=== PATIENT | female | born 1940 | race Caucasian/White ===

== ENCOUNTER 2016-12-18 10:36 | Inpatient (IN) | payer MEDICARE, BC ==
[2016-12-18] MEDS ORDERED: ALBUTEROL SULFATE/IPRATROPIUM 3 ML NEBU IH ONE ×2 (10:45→10:56)
[2016-12-18] MEDS ORDERED: METHYLPREDNISOLONE SOD SUCC/PF 125 MG/2 ML VIAL IV ONE (10:45)
[2016-12-18] MEDS ORDERED: METHYLPREDNISOLONE SOD SUCC/PF 125 MG/2 ML VIAL ONE (10:56)
--- OUTSIDE RECORDS SUMMARY | 2016-12-18 11:01 | XMS REPORT | Continuity of Care Document ---
:1940 Author Organization [facility] ([facility]) Address [address] [place] [address] Phone [phone] Care Team Providers Name Role Phone RobertAleta santosgy Primary Care Provider [phone] Source Comments This disclosure is being made pursuant to the Care Everywhere program, applicable federal and state laws, and may not contain all informaitonavailable regarding this patient.[facility] ([facility]) Active Allergies and Adverse Reactions Allergen Noted Date Severity Reactions Comments Codeine 11/13/2009 Respiratory Distress Ropinirole 05/24/2014 Nausea & Vomiting Current Medications Prescription Sig. Disp. Refills Start Date End Date Status BETA-CAROTENE,A, Take by Active W-C & E/ZN/CU mouth. (OCUVITE PRESERVISION PO) lisinopril-hydrochl Take 1 Tab by Active orothiazide 10-12.5 mouth daily. mg per tablet calcium Take 1 Tab by Active carbonate-vitamin mouth daily. D3 w/ minerals (CALCIUM-VITAMIN D) 600 mg calcium- 400 unit per tablet artificial tears instill 1 Drop Active (REFRESH PLUS) 0.5 onto both eyes % ophthalmic 3 times daily. dropperette CLONAZEPAM 0.5 mg 11/21/2014 Active tablet omeprazole 40 mg Take 40 mg by Active enteric coated mouth 2 times capsule daily. letrozole 2.5 mg Take 1 tablet 30 tablet 11 04/17/2016 Active tablet (2.5 mg total) by mouth daily. HYDROcodone-acetami TAKE ONE 0 03/20/2016 Active nophen 7.5-325 mg TABLET BY per tablet MOUTH EVERY 4 TO 6 HOURS NEEDED levothyroxine 100 Take 1 tablet 8 08/08/2016 Active mcg tablet (100 mcg) by mouth daily sucralfate 1000 mg TAKE 1 TAB 4 2 08/08/2016 Active tablet TIMES A DAY BEFORE MEALS AND BEDTIME benzonatate 200 mg TAKE 2 CAPS 3 2 08/22/2016 Active capsule TIMES A DAY NEEDED gabapentin 100 mg Take 100 mg by 3 10/08/2016 Active capsule mouth at bedtime. gabapentin 300 mg TAKE ONE 2 09/09/2016 Active capsule TABLET BY MOUTH NIGHTLY albuterol-ipratropi NEBULIZE 1 3 08/22/2016 Active um 2.5-0.5 mg/3 mL VIAL EVERY 4 inhalation solution HOURS NEEDED levoFLOXacin 500 mg Take 1 tablet 0 08/22/2016 Active tablet (500 mg) by mouth daily for 14 days amoxicillin-clavula Take 1 tablet 0 07/08/2016 12/17/2016 Discontinued miky 875-125 mg per by mouth 2 tablet times daily. predniSONE 10 mg TAKE 2 TABS IN 0 08/25/2016 12/17/2016 Discontinued tablet THE AM. 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 Right Eye Left Eye Time To Recurrence: Time To Recurrence: Date VA (D cc) CMT Status Procedure VA (D cc) CMT Status Procedure Cmts 11/13/2009 20/100 20/50 Avastin #[id number] 12/25/2009 20/35 20/35 -1 332 Avastin #[id number] 02/05/2010 20/35 20/35 307 Avastin #[id number] 03/26/2010 20/50 20/30 294 Avastin #[id number] 05/21/2010 20/28 20/22 285 Avastin #[id number] 07/23/2010 20/30 20/20 -1 316 Avastin #[id number] 09/17/2010 20/30 20/25 285 Avastin #[id number] 10/31/2010 20/30-1 20/20-1 259 Avastin #[id number] 12/10/2010 20/40-1 20/20-1 328 Avastin #[id number] 01/23/2011 20/30 +2 20/20 -2 281 Avastin#[id number] 02/27/2011 20/40 20/20 281 Avastin # [id number] 04/16/2011 20/30 20/20 -2 278 Avastin #[id number] 05/29/2011 20/30 20/20-1 Avastin #[id number] 07/22/2011 20/40 20/20 Avastin [id number] 09/30/2011 20/60 20/20-2 Avastin [id number] 11/25/2011 20/50-2 ph 20/30-1 20/20-2 Avastin [id number] 01/20/2012 20/60 ph 20/40 20/20 Avastin [id number] 03/23/2012 320 avastin [id number] 05/25/2012 20/60 ph20/25 20/40 Avastin [id number] 07/28/2012 20/25 -2 20/20 -1 Avastin [id number] 10/06/2012 20/25+2 20/30+2 Avastin [id number] 12/22/201228-1 20/28 Avastin [id number] 03/09/2013/30+2 2020-2 Lucentis [id number] 05/31/2013 [id number] 06/29/2013 sc -1 sc Lucentis [id number] 07/27/13 Pa 28+2 Lucentis [id number] 08/26/2013-2 ma 20/ cc Lucentis [id number] 09/28/2013+1 ma -2 sc Lucentis [id number] 11/02/2013 sc 20/22 sc Lucentis [id number] 01/17/2014 -2 ma 2030 -2 sc Lucentis [id number] 03/22/2014 20/20 sc 20/20 sc Lucentis [id number] 05/24/2014 20/20-1 sc 20/20-1 sc Lucentis lot [id number] 08/02/2014 20/20 sc 20/20 sc Lucentis lot [id number] 09/19/2014 20/30 sc 20/30 sc Lucentis [id number] 11/01/2014 20/20 sc 20/20 sc Lucentis lot [id number] 12/06/2014 20/20 sc 20/20 sc Lucentis [id number] 01/24/2015 20/20 sc 20/20 sc Lucentis [id number] 03/14/2015 20/25 sc 20/25 sc Lucentis [id number] . 05/22/2015 20/40 sc 20/25 sc Lucentis [id number] 07/25/2015 20/20 -1 sc 20/20 -2 sc Lucentis [id number] 09/05/2015 20/20 sc 20/20 sc Lucentis [id number] 10/31/2015 20/20-2 sc 20/20-1 sc Lucentis [id number] 12/26/2015 20/20 sc 20/15-1 sc Lucentis [id number] 02/20/2016 20/20 -1 cc 20/15 -2 cc Lucentis [id number] 04/09/2016 20/20-1 sc 20/25 sc Lucentis [id number] 05/28/2016 20/15-1 sc 20/20-2 sc Lucentis [id number] 07/16/2016 20/20-1 +1 sc 20/20-2 +3 sc Lucentis [id number] 09/10/2016 20/20 -2 sc 20/20-1 +3 sc Lucentis [id number] 10/27/2016 20/20 sc 20/20 -1 sc Lucentis [id number] 12/17/2016 20/20 sc 20/20 sc Lucentis [id number] Most Recent Encounters Date Type Specialty Providers Description 12/17/2016 Office Visit Ophthalmology - Chief Comp: Patient Specialty Reported Reason For Visit 12/17/2016 Office Visit Ophthalmology - Default, Other Dx: Exudative age- related Specialty Billg - Defo macular degeneration of Sanjay Soliz, left eye with active MD choroidal neovascularization (Primary Dx) 10/27/2016 Office Visit Ophthalmology - Chief Comp: Patient Specialty Reported Reason For Visit 10/27/2016 Office Visit Ophthalmology - Juanita Correa, Dx: Exudative age- related Specialty macular degeneration of left eye with active choroidal neovascularization (Primary Dx) 10/06/2016 Office Visit Ophthalmology - Juanita Correa, Chief Comp: Patient Specialty MD Reported Reason For Visit Social History Tobacco Use Types Packs/Day Years Used Date Former Smoker Cigarettes 1 40 Quit: 05/02/2010 Smokeless Tobacco: Never Used Tobacco Cessation:Counseling Given: Yes Comments: Alcohol Use Drinks/Week oz/Week Comments No 0 Standard drinks or equivalent 0.0 Last Filed Vital Signs Vital Sign Reading Time Taken Blood Pressure 120/80 08/11/2016 9:00 AM CDT Pulse 84 08/11/2016 9:00 AM CDT Temperature 35.9 C (96.6 F) 08/11/2016 9:00 AM CDT Respiratory Rate 20 08/11/2016 9:00 AM CDT Height 1.549 m (5' 1") 03/06/2014 10:59 AM CDT Weight 50.803 kg (112 lb) 08/11/2016 9:00 AM CDT Body Mass Index 21.17 08/11/2016 9:00 AM CDT Oxygen Saturation 99% 01/21/2016 9:26 AM CDT Plan of Care Date Type Specialty Providers Description 02/04/2017 Appointment Ophthalmology - Default, Other Chief Comp: Patient Specialty Billg - Defo Reported Reason For [address] [place] [address] [phone] (Fax) Health Maintenance Due Date Last Done Comments Hepatitis B Vaccine (1 of 3 - Primary Series) 1940 Tdap Vaccine 1950 Lipid Disorder Screening 1957 Td Vaccine 1957 Mammogram 1979 Colonoscopy 11/04/1989 Zoster Vaccine 1999 Osteoporosis Screening (DXA Bone Density) 2004 Pneumococcal Vaccine (1 of 2 - PCV13) 2004 Influenza Vaccine: Seasonal (#1) 05/19/2016 Results from Last 3 Months EYE PROC - INTRAVITREAL INJECTION (12/17/2016 10:04 AM)Only the most recent of2 resultswithin the time period is included. Narrative Sanjay Soliz MD 12/17/2016 10:04 AM [facility]reous Injection Clinic Current Date: 12/17/2016 Subjective: Codie Colby is a 76 y.o. female with a history of Exudative age-related macular degeneration of left eye with active choroidal neovascularization. History of Present Illness: Patient returns for continued treatment of AMD OS with Lucentis. Patient states vision is about the same since the last injection. 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 Breast cancer 02/02/2013 Exudative age-related macular degeneration of left eye with active choroidal neovascularization 11/13/2009 Injection History: AMD OD dAMD, never inj OS: -07/25/15 had new SRF (improved VA) on 9w Lucentis Injection and Visual Acuity Log Date Injection OD VA sc VA cc Injection OS VA sc VA cc 12/17/201620/20 20/20 10/27/201620/20 20/20 -1 09/10/201620/20 -2 20/20-1 +3 07/16/201620/20-1 +1 20/20-2 +3 05/28/201620/15-1 20/20-2 04/09/201620/20-1 20/25 02/20/2016 20/20 -1 20/15 -2 12/26/201520/20 20/15-1 10/31/201520/20-2 20/20-1 09/05/201520/20 20/20 07/25/201520/20 -1 20/20 -2 05/22/201520/0/25-2 20/03/14/201520/25NI 20/25 01/24/201520/20 20/20 12/06/201420/20 20/20 11/01/464254/20 20/20 09/19/201420/0/30+2 20/08/02/201420/20 20/20 05/24/201420/20-1 20/20-1 03/22/201420/20 20/20 30 -2nh 30 -2 20/09/28/2013 Lucentis +1 -2 -/08/24/2013 20/22-1 +2 06/29/2013 20/22-1 -2 20/20 -1 +220/25-1 20/20-2 28-1 2010/06/2012+220/20-2 20/30+2 07/28/20122025 -2 20/20 -1 05/25/201220/6020/25 20/40 03/23/201220/4020/30+2 20/40 -2 01/20/2012 20/60 20/20 11/25/2011 20/50 -2 20/20 -2 09/30/2011 20/60 20/20-2 07/22/2011 20/40 20/20 05/29/2011 20/30 20/20 -1 04/16/2011 20/30 20/20 -2 02/27/2011 20/40 20/20 01/23/2011 20/30 +2 20/20 -2 12/10/2010 20/40 -1 20/20 -1 10/31/2010 20/30 -1 20/20 -1 09/17/2010 20/30 20/25 07/23/2010 20/30 20/20 -1 05/21/2010 20/28 20/22 03/26/2010 20/50 20/30 02/05/2010 20/35 20/35 12/25/2009 20/35 20/35 -1 Review of Systems: Negative except per HPI Objective: Base Eye Exam Visual Acuity (Snellen - Linear) Right Left Dist sc 20/20 20/20 Tonometry (Tonopen, 8:14 AM) Right Left Pressure 14 15 Neuro/Psych Oriented x3:Yes Mood/Affect:Normal Dilation Left eye:0.5% Mydriacyl, 2.5% Phenylephrine @ 8:14 AM Slit Lamp and Fundus Exam Fundus Exam Right Left Macula not dilated PED with mild thickening, no hemorrhage Oct Macula Left Eye 12/17/2016 OS:CMT 353 microns , was 314. Juxtafoveal FVPED with increased SRFadjacent to lesion. Assessment / Plan: 1. Age-related macular degeneration OD: dry, high risk-stable. OS: Exudative: involuted chronic on Lucentis since 2009. Last activity was 07/2014. Minimal SRF, improved from last visit. -s/p Avastin last 12/22/12. -s/p Lucentis OS 10/27/16 (7w) 2. Choroidal nevus OD: typical, stable, low risk for malignant transformation. 3. Dry eye OU 4. Hx of breast cancer: No choroidal metastases. PLAN: 1. Lucentis OS today. 2. Continue AREDS/amlser grid monitoring. 3. S/Sx of Choroidal neovascularization discussed. 4. Follow up in 7 weeks in injection clinic. Keep at 7 weeks until dry then SLOWLY increase interval. Back to [facility] or prn. Staff Involved Resident/Fellow without Staff (non-primary care) PROCEDURE: Intravitreal injection Medication Injected: Intravitreal injection of 0.5mg Lucentis left eye. Pre-procedure Diagnosis:Exudative age-related macular degeneration of left eye with active choroidal neovascularization Preparation:5% Sterile PVP Antibiotic Drops:Gentamicin 0.3% administered both pre and post-procedure to injected eye/s Anesthesia: Topical Proparacaine 0.5% and Subconjunctival 2% Lidocaine Complications:None Post-injection Exam:VA > or=Hand Motions Procedure Comments: Patient was given endophthalmitis return precautions including pain and decreased vision and was instructed to return to clinic if any concerns. I was present for the entire procedure. Sanjay Soliz MD Vitreoretinal Surgery Fellow Department of Ophthalmology [facility] OCT MACULA LEFT EYE (12/17/2016 8:20 AM) Narrative OS:CMT 353 microns , was 314. Juxtafoveal FVPED with increased SRF adjacent to lesion. OCT MACULA (10/27/2016 8:07 AM) Narrative OD:CMT 266 microns , was 272. Drusen no fluid. OS:CMT 314 microns , was 353. Juxtafoveal FVPED with trace SRF adjacent to lesion.
--- NOTE | 2016-12-18 11:03 | ERNOTE ---
Date of Service: 12/18/16 Time Seen by Provider: 12/18/16 10:44 Stated Complaint: PNEUMONIA/BACK PAIN Presenting Symptoms:: cough Source: patient, RN/MD Exam Limitations: no limitations Immunizations: IMMUNIZATION HX Immunizations Up to Date Yes History of Influenza Vaccine No Hx Pneumococcal Vaccination No Allergies/Adverse Reactions: Allergies codeine [Codeine] Allergy (Severe, Verified 07/08/16 11:53) respiratory distress ropinirole Allergy (Mild, Verified 12/18/16 10:45) Nausea Home Medications: HOME MEDICATIONS Levothyroxine Sodium [Synthroid] 100 mcg PO DAILY 04/26/13 [Last Taken 04/17/14] Lisinopril/Hydrochlorothiazide [Lisinopril-Hctz 20-12.5 mg Tab] 1 each PO DAILY 04/26/13 [Last Taken 04/17/14] Albuterol Sulfate/Ipratropium [Duoneb 2.5-0.5MG/3ML Soln] 3 ml IH QID 12/18/16 [ Last Taken Unknown] Benzonatate 400 mg PO TID 12/18/16 [Last Taken Unknown] Calcium Carb/Vit D3/Minerals [Calcium 600+D Plus Minerals Tb] 1 each PO DAILY [Last Taken Unknown] Gabapentin 300 mg PO HS 12/18/16 [Last Taken Unknown] Letrozole [Femara] 2.5 mg PO DAILY 12/18/16 [Last Taken Unknown] Levofloxacin [Levaquin] 500 mg PO 12/18/16 [Last Taken Unknown] Omeprazole 40 mg PO BID 12/18/16 [Last Taken Unknown] Sucralfate [Carafate] 1 gm PO QID 12/18/16 [Last Taken Unknown] clonazePAM [Klonopin] 0.5 mg PO DAILY 12/18/16 [Last Taken Unknown] - History of Present Ilness Narrative: Pt. comes in with c/o cough and SOB for four months that she was placed on abx and steroids for last week that is not improving. Pt. also takes duonebs daily without relief in symptoms. Pt. is a former smoker but does not have a hx of any diagnosed lung or heart disease. Pt. denies any chest pain but does c/o L post back pain that started a week ago and has not improved despite treatment for pneumonia. Pt. denies any fever, rhinorrhea, sinus pain or congestion, abd pain, or NVD. Pt. denies any aggravating factors. Review of Systems - Review of Systems Constitutional: Present: no symptoms reported, weakness, fatigue, malaise. Absent: recent illness, fever, chills EYE: Present: no symptoms reported ENT: Present: no symptoms reported Respiratory: Present: shortness of breath, cough, wheezing Cardiology: Present: no symptoms reported. Absent: chest pain, palpitations, edema Gastrointestinal/Abdominal: Present: no symptoms reported. Absent: nausea, vomiting, diarrhea, abdominal pain Genitourinary: Present: no symptoms reported Musculoskeletal: Present: back pain - L lateral upper back. Absent: joint pain Neurological: Present: no symptoms reported. Absent: headache, dizziness/light- headedness, numbness, tingling All Other Systems: All systems neg except as marked - Patient's Past Medical History Patient History - Cardiac/Respiratory: Hypertension Patient History - Cancer: Breast, Kidney Patient History - Surgical Procedures: Appendectomy, Cholecystectomy, Total Knee Replacement, T & A, Other Patient History - Other: None LMP (females 10-50): Menopausal - Social History Living Situations: home Psych History: No pertinent hx Smoking Status: Former smoker - Immunizations Immunizations Up to Date: Yes Hx Pneumococcal Vaccination: No History of Influenza Vaccine: No Physical Exam - Physical Exam General Appearance: Present: wd/wn, alert, no apparent distress Eye Exam: Normal inspection: bilateral, PERRL: bilateral, EOMI: bilateral Ears, Nose, Throat: Present: normal ENT inspection, normal pharynx Neck: Present: normal inspection, nontender. Absent: lymphadenopathy (R), lymphadenopathy (L) Respiratory: Present: chest nontender, respiratory distress, accessory muscle use - abdominal, decreased breath sounds - L lung. Absent: chest tenderness, rales, rhonchi, wheezing Cardiovascular/Chest: Present: no murmur, normal peripheral pulses, tachycardia Gastrointestinal/Abdominal: Present: normal bowel sounds, nontender, nondistended, soft, no organomegaly Back Exam: Present: normal inspection, normal range of motion, no CVA tenderness , no vertebral tenderness Extremity Exam: Present: normal inspection, non-tender, normal range of motion, no edema. Absent: calf tenderness Neurological Exam: Present: alert, oriented, normal mood/affect, no motor/ sensory deficits, operations officer trust department II-XII nml as tested, normal cerebellar test Skin Exam: Present: warm/dry, pallor. Absent: skin rash ED Progress - Date and Time Seen: Date and Time: 12/18/16 13:[address] Lori Espitia and he accepts pt. for admission - Results and Orders Patient's Lab Results:: I have reviewed the patient's lab results. - Vital Signs Patient's Vital Signs:: I have reviewed the patient's vital signs. Vital Signs: Vital Signs 12/18/16 12/18/16 10:40 10:48 Temperature 36.4 C L Pulse Rate 109 H 109 H Respiratory 19 Rate Blood Pressure 133/74 O2 Sat by Pulse 93 Oximetry - EKG EKG: NSR EKG read: Interp. by me - X-Ray X-Ray #1 X-Ray: chest Interpretation: Reviewed by me X-ray Comments: worsening RML infiltrate and new RLL infiltrate - CT/Ultrasound CT/Ultrasound Narrative: CT chest without PE but with mucus plugging in RMDS and distal R trachea. - Progress/Reassessment Chief Complaint: Upper Respiratory Symptoms Progress:: Unchanged Departure - Departure Clinical Impression: Pneumonia Qualifiers: Pneumonia type: due to unspecified organism Laterality: right Lung location: unspecified part of lung Qualified Code(s): J18.9 - Pneumonia, unspecified organism Disposition: [facility] Condition: Serious Referrals: Tatiana Casey, RESERVATIONS CLERK [Primary Care Provider] -
[2016-12-18 11:20] LABS: Hematocrit 38.6 % (37.0-47.0); Hemoglobin 12.5 gm/dL (12.5-16.0); Mean Cell Volume 84.6 fl (78-100); Mean Corpuscular Hemoglobin 27.4 pg (27-31); Mean Corpuscular Hgb Conc 32.4 g/dl (32-36); Mean Platelet Volume 9.3 fl (6.0-9.5); Neutrophil # 16.7 K/mm3 (1.3-6.0); Neutrophil % 92.3 % (42-75.0); Platelet Count 342 K/mm3 (150-450); Red Blood Count 4.56 M/mm3 (4.2-5.4); Red Cell Distribution Width 14.5 % (11.5-14.0)
[2016-12-18 11:27] LABS: Troponin I Less than 0.017 ng/ml (0.00-0.10)
[2016-12-18 11:29] LABS: ALT 18 U/L (19-67); AST 14 U/L (0-48); Albumin * 2.9 gm/dl (3.4-5.0); Alkaline Phosphatase * 91 U/L (50-170); Anion Gap 16.6 mmol/L (6.8-13.8); BNP * 736 pg/mL (5-550); BUN/Creatinine Ratio 17.1 (9.0-21.6); Bilirubin, Total 0.3 mg/dL (0.0-1.1); Blood Urea Nitrogen 18 mg/dL (3-23); Ca. Corrected For Albumin 8.9 mg/dL (8.4-10.2); Calcium * 8.3 mg/dL (7.9-10.9); Carbon Dioxide 22.1 mmol/L (24-32.6); Chloride 102 mmol/L (97-106); Glucose * 105 mg/dL (70-110); Potassium 4.7 mmol/L (3.4-4.6); Sodium 136 mmol/L (132-142); Total Protein 7.2 gm/dL (6.2-8.2)
[2016-12-18] MEDS ORDERED: AZITHROMYCIN 500 MG in DEXTROSE 5 % IN WATER 250 ML IV ONE ×2 (11:30)
[2016-12-18] MEDS ORDERED: NORMAL SALINE 1,000 ML IV ONE (11:55)
--- OUTSIDE RECORDS SUMMARY | 2016-12-18 14:05 | XMS REPORT | Continuity of Care Document ---
:1940 Author Organization [facility] ([facility]) Address [address] [place] [address] Phone [phone] Care Team Providers Name Role Phone RobertAleta santosgy Primary Care Provider [phone] Source Comments This disclosure is being made pursuant to the Care Everywhere program, applicable federal and state laws, and may not contain all informaitonavailable regarding this patient.[facility] ([facility]) Active Allergies and Adverse Reactions Allergen Noted [...] Status Procedure Cmts 11/13/2009 20/100 20/50 Avastin #[id number] 12/25/2009 20/35 20/35 -1 332 Avastin #[id number] 02/05/2010 20/35 20/35 307 Avastin #[id number] 03/26/2010 20/50 20/30 294 Avastin #[id number] 05/21/2010 20/28 20/22 285 Avastin #[id number] 07/23/2010 20/30 20/20 -1 316 Avastin #[id number] 09/17/2010 20/30 20/25 285 Avastin #[id number] 10/31/2010 20/30-1 20/20-1 259 Avastin #[id number] 12/10/2010 20/40-1 20/20-1 328 Avastin #[id number] 01/23/2011 20/30 +2 20/20 -2 281 Avastin#502164-9 02/27/2011 20/40 20/20 281 Avastin # [id number] 04/16/2011 20/30 20/20 -2 278 Avastin #[id number] 05/29/2011 20/30 20/20-1 Avastin #[id number] 07/22/2011 20/40 20/20 Avastin [id number] 09/30/2011 20/60 20/20-2 Avastin [id number] 11/25/2011 20/50-2 ph 20/30-1 20/20-2 Avastin [id number] 01/20/2012 20/60 ph 20/40 20/20 Avastin [id number] 03/23/2012 320 avastin 543577-3 05/25/2012 20/60 ph20/25 20/40 Avastin [id number] 07/28/2012 20/25 -2 20/20 -1 Avastin [id number] 10/06/2012 20/25+2 20/30+2 Avastin [id number] 12/22/201228-1 20/28 Avastin [id number] 03/09/2013/30+2 2020-2 Lucentis [id number] 05/31/2013 [id number] 06/29/2013 sc -1 sc Lucentis [id number] 07/27/13 Wi 28+2 Lucentis [id number] 08/26/2013-2 al 20/ cc Lucentis 610285 09/28/2013+1 al -2 sc Lucentis 408277 11/02/2013 sc 20/22 sc Lucentis 270697 01/17/2014 -2 al 2030 -2 sc Lucentis 508690 03/22/2014 20/20 sc 20/20 sc Lucentis [id number] 05/24/2014 20/20-1 sc 20/20-1 sc Lucentis lot [id number] 08/02/2014 20/20 sc 20/20 sc Lucentis lot [id number] 09/19/2014 20/30 sc 20/30 sc Lucentis 783922 11/01/2014 20/20 sc 20/20 sc Lucentis lot [id number] 12/06/2014 20/20 sc 20/20 sc Lucentis [id number] 01/24/2015 20/20 sc 20/20 sc Lucentis [id number] 03/14/2015 20/25 sc 20/25 sc Lucentis [id number] . 05/22/2015 20/40 sc 20/25 sc Lucentis [id number] 07/25/2015 20/20 -1 sc 20/20 -2 sc Lucentis [id number] 09/05/2015 20/20 sc 20/20 sc Lucentis [id number] 10/31/2015 20/20-2 sc 20/20-1 sc Lucentis [id number] 12/26/2015 20/20 sc 20/15-1 sc Lucentis [id number] 02/20/2016 20/20 -1 cc 20/15 -2 cc Lucentis [id number] 04/09/2016 20/20-1 sc 20/25 sc Lucentis [id number] 05/28/2016 20/15-1 sc 20/20-2 sc Lucentis [id number] 07/16/2016 20/20-1 +1 sc 20/20-2 +3 sc Lucentis [id number] 09/10/2016 20/20 -2 sc 20/20-1 +3 sc Lucentis [id number] 10/27/2016 20/20 sc 20/20 -1 sc Lucentis [id number] 12/17/2016 20/20 sc 20/20 sc Lucentis [id number] Most Recent Encounters Date Type Specialty Providers [...] Reported Reason For [address] [place] [address] [phone] (Fax) Health Maintenance Due Date Last Done [...] 05/22/201520/0/25-2 20/03/14/201520/25NI 20/25 01/24/201520/20 20/20 12/06/201420/20 20/20 11/01/519471/20 20/20 09/19/201420/0/30+2 20/08/02/201420/20 20/20 05/24/201420/20-1 20/20-1 03/22/201420/20 [...] dry then SLOWLY increase interval. Back to [facility] or prn. Staff Involved Resident/Fellow [...] MD Vitreoretinal Surgery Fellow Department of Ophthalmology [facility] OCT MACULA LEFT EYE (12/17/2016 8:20 AM) Narrative OS:CMT 353 microns , was 314. Juxtafoveal FVPED with increased SRF adjacent to lesion. OCT MACULA (10/27/2016 8:07 AM) Narrative OD:CMT 266 microns , was 272. Drusen no fluid. OS:CMT 314 microns , was 353. Juxtafoveal FVPED with trace SRF adjacent to lesion.
[2016-12-18] MEDS ORDERED: ACETAMINOPHEN 325 MG TABLET PO PRN (14:26)
[2016-12-18] MEDS ORDERED: METHYLPREDNISOLONE SOD SUCC/PF 125 MG/2 ML VIAL IV SCH (14:45)
[2016-12-18] MEDS: ALBUTEROL SULFATE/IPRATROPIUM 3 ML NEBU IH SCH ×3 (15:32→22:24)
--- NOTE | 2016-12-18 16:59 | HP ---
Chief Complaint - Chief Complaint Date of Service: 12/18/16 Time of Service: 17:50 Chief Complaint: Cough History of Present Illness: This is a 76 y/o woman who has had a cough and SOB for four months. The week prior to this admission she was given prescriptions for corticosteroids and antibiotics, but she hasn't improved. She has also used duonebs daily without relief in symptoms. She is a former smoker, but does not have a history of any diagnosed lung or heart disease. She denies any chest pain, but does complain of left sided back pain that started a week ago and has not improved despite treatment for pneumonia. She denies any fever, rhinorrhea, sinus pain or congestion, abd pain, or NVD. She denies any aggravating factors. Today she came to the [facility] ER because of her illness, where CXR showed pneumonia. - Patient's Past Medical History Patient History - Medical: Hypothyroidism Patient History - Cardiac/Respiratory: Hypertension Patient History - Cancer: Breast, Kidney Patient History - Surgical Procedures: Appendectomy, Cholecystectomy, Total Knee Replacement, T & A, Other Patient History - Other: None LMP (females 10-50): Menopausal - Family History Brother Family History - Medical: , Diabetes Type 2 Sister Family History - Medical: Diabetes Type 2 Family History - Cardiac/Respiratory: COPD Mother Family History - Medical: Diabetes Type 1 Father Family History - Cardiac/Respiratory: History Unknown - Social History Living Situations: other Abuse History: No History of abuse Psych History: No pertinent hx Smoking Status: Former smoker Have you smoked in the past 12 months: No Do you dip or chew tobacco: No Patient requests Smoking Cessation Consult: No Initiate information on Smoking Cessation: No Alcohol Use: none Drug Use: none - Immunizations Immunizations Up to Date: Yes Hx Pneumococcal Vaccination: No History of Influenza Vaccine: No Review Of Systems (GEN) - Review of Systems Generalized/Overall Review: Present: Malaise EENTM: Present: No Symptoms Reported Respiratory: Present: Cough Cardiac: Present: No Symptoms Reported Abdominal: Present: No Symptoms Reported Genitourinary: Present: No Symptoms Reported Musculoskeletal: Present: Back Pain Neurological: Present: No Symptoms Reported Skin: Present: No Symptoms Reported Endocrine: Present: No Symptoms Reported Misc: All systems neg except as marked Immunizations: IMMUNIZATION HX Immunizations Up to Date Yes History of Influenza Vaccine No Hx Pneumococcal Vaccination No Allergies/Adverse Reactions: Allergies Allergy/AdvReac Type Severity Reaction Status Date / Time codeine [Codeine] Allergy Severe respiratory Verified 12/18/16 14:55 distress ropinirole Allergy Mild Nausea Verified 12/18/16 14:55 Home Medications: HOME MEDICATIONS Levothyroxine Sodium [Synthroid] 100 mcg PO DAILY 04/26/13 [Last Taken 04/17/14] Lisinopril/Hydrochlorothiazide [Lisinopril-Hctz 20-12.5 mg Tab] 1 each PO DAILY 04/26/13 [Last Taken 04/17/14] Albuterol Sulfate/Ipratropium [Duoneb 2.5-0.5MG/3ML Soln] 3 ml IH Q4H 12/18/16 [ Last Taken Unknown] Benzonatate 400 mg PO TID 12/18/16 [Last Taken Unknown] Beta-Carotene(A) W-C , E/Min [Ocuvite] 2 tab PO DAILY 12/18/16 [Last Taken Unknown] Calcium Carb/Vit D3/Minerals [Calcium 600+D Plus Minerals Tb] 1 each PO DAILY [Last Taken Unknown] Hydrocodone/Acetaminophen [Hydrocodon-Acetaminoph 7.5-325] 1 each PO Q4H PRN 12/05 [Last Taken Unknown] Letrozole [Femara] 2.5 mg PO DAILY 12/18/16 [Last Taken Unknown] Levofloxacin [Levaquin] 500 mg PO DAILY 12/18/16 [Last Taken Unknown] Omeprazole 40 mg PO BID 12/18/16 [Last Taken Unknown] Polyvinyl Alcohol [Artificial Tears] 1 drop OP TID 12/18/16 [Last Taken Unknown] Sucralfate [Carafate] 1 gm PO QID 12/18/16 [Last Taken Unknown] clonazePAM [Klonopin] 0.5 mg PO DAILY 12/18/16 [Last Taken Unknown] Exam - Exam Vital Signs: Vital Signs - Last Taken Selected Entries 12/18/16 15:20 Temperature 37 C Temperature Temporal Artery Source Scan Pulse Rate 76 Pulse Rhythm Regular Pulse Strength Normal Respiratory 22 H Rate Respiratory Normal Depth Respiratory Normal Effort Respiratory Normal Pattern Blood Pressure 106/54 Blood Pressure Supine Position O2 Sat by Pulse 92 Oximetry Oxygen Delivery Room Air Method Constitutional: Present: Alert, Oriented x3, Cooperative, Well developed, No distress ENT Exam: Present: normal ENT inspection, hearing grossly normal, pharynx normal , TMs normal Eye Exam: bilateral eye: normal inspection, PERRL, EOMI Neck: Present: normal inspection Back Exam: Present: normal inspection, no CVA tenderness, no vertebral tenderness Respiratory: Present: decreased breath sounds, rhonchi, expiration (prolonged) Cardiovascular/Chest: Present: regular rate, rhythm, no murmur Abdomen: Present: Normal bowel sounds, soft, nontender, nondistended, no rebound tenderness, no hepatospenomegaly, no masses Extremity: Present: normal inspection, no pedal edema Skin Exam: Present: normal color, warm/dry, no cyanosis Neurologic: Present: alert, oriented x 3 Appearance: Present: appropriate appearance, neat Eye contact: Present: cooperative, good eye contact, normal speech Thoughts: Present: normal thought pattern Diagnostic Studies: Laboratory Results WBC 18.0 K/mm3 (4.0-10.5) H 12/18/16 11:01 RBC 4.56 M/mm3 (4.2-5.4) 12/18/16 11:01 Hgb 12.5 gm/dL (12.5-16.0) 12/18/16 11:01 Hct 38.6 % (37.0-47.0) 12/18/16 11:01 MCV 84.6 fl (78-100) 12/18/16 11:01 MCH 27.4 pg (27-31) 12/18/16 11:01 MCHC 32.4 g/dl (32-36) 12/18/16 11:01 RDW 14.5 % (11.5-14.0) H 12/18/16 11:01 Plt Count 342 K/mm3 (150-450) 12/18/16 11:01 MPV 9.3 fl (6.0-9.5) 12/18/16 11:01 Immature Gran % (Auto) 0.60 % (0.001-0.429) H 12/18/16 11:01 Immature Gran # (Auto) 0.10 K/mm3 (0.000-0.0310) H 12/18/16 11:01 Neutrophils % 92.3 % (42-75.0) H 12/18/16 11:01 Lymphocytes % 4.1 % (20-51) L 12/18/16 11:01 Monocytes % 2.7 % (0.0-9) 12/18/16 11:01 Eosinophils % 0.1 % (0.0-3.0) 12/18/16 11:01 Basophils % 0.2 % (0.0-1.0) 12/18/16 11:01 Nucleated RBC % 0.0 k/mm3 (0-1) 12/18/16 11:01 Neutrophils # 16.7 K/mm3 (1.3-6.0) H 12/18/16 11:01 Lymphocytes # 0.7 k/mm3 (1.5-3.5) L 12/18/16 11:01 Monocytes # 0.5 k/mm3 (0.0-1.0) 12/18/16 11:01 Eosinophils # 0.0 k/mm3 (0.0-0.7) 12/18/16 11:01 Absolute Basophils 0.0 k/mm3 (0.0-0.1) 12/18/16 11:01 D-Dimer 1.10 mg/L (0.19-0.49) H 12/18/16 11:01 pCO2 27.5 mmHg (32.0-45.0) L 12/18/16 10:45 pO2 70.0 mmHg (83.0-108.0) L 12/18/16 10:45 HCO3 17.8 mmol/L (21.0-28.0) L 12/18/16 10:45 Total CO2 18.6 mmol/L (19.0-24.0) L 12/18/16 10:45 Base Excess -5.2 mmol/L (-2.0-3.0) L 12/18/16 10:45 ABG pH 7.43 (7.35-7.45) 12/18/16 10:45 ABG O2 Sat (Measured) 94.8 % (94.0-98.0) 12/18/16 10:45 Sodium 136 mmol/L (132-142) 12/18/16 11:01 Plasma Sodium 136 mmol/L (130-142) 12/18/16 11:01 Potassium 4.7 mmol/L (3.4-4.6) H 12/18/16 11:01 Chloride 102 mmol/L (97-106) 12/18/16 11:01 Carbon Dioxide 22.1 mmol/L (24-32.6) L 12/18/16 11:01 Anion Gap 16.6 mmol/L (6.8-13.8) H 12/18/16 11:01 BUN 18 mg/dL (3-23) 12/18/16 11:01 Creatinine 1.05 mg/dL (0.4-1.4) 12/18/16 11:01 Est GFR (Non-Af Amer) 54 mL/min (60-130) L 12/18/16 11:01 BUN/Creatinine Ratio 17.1 (9.0-21.6) 12/18/16 11:01 Random Glucose 105 mg/dL (70-110) 12/18/16 11:01 Calcium 8.3 mg/dL (7.9-10.9) 12/18/16 11:01 Calcium Adj for Albumin 8.9 mg/dL (8.4-10.2) 12/18/16 11:01 Total Bilirubin 0.3 mg/dL (0.0-1.1) 12/18/16 11:01 AST 14 U/L (0-48) 12/18/16 11:01 ALT 18 U/L (19-67) L 12/18/16 11:01 Alkaline Phosphatase 91 U/L (50-170) 12/18/16 11:01 Troponin I Less than 0.017 ng/ml (0.00-0.10) 12/18/16 11:01 B-Natriuretic Peptide 736 pg/mL (5-550) H 12/18/16 11:01 Total Protein 7.2 gm/dL (6.2-8.2) 12/18/16 11:01 Albumin 2.9 gm/dl (3.4-5.0) L 12/18/16 11:01 Assessment/Plan - Narrative Narrative: IV steroids, antibiotics, follow labs. Breathing treatments. Estimate stay of 3 days. - Assessment/Plan (1) Pneumonia Problem: Acute Qualifiers: Pneumonia type: due to unspecified organism Laterality: right Lung location: unspecified part of lung Qualified Code(s): J18.9 - Pneumonia, unspecified organism (2) Hypertension Problem: Chronic Qualifiers: Hypertension type: essential hypertension Qualified Code(s): I10 - Essential (primary) hypertension (3) Hypothyroidism Problem: Chronic Qualifiers: Hypothyroidism type: acquired Qualified Code(s): E03.9 - Hypothyroidism, unspecified (4) Bronchospasm with bronchitis, acute Problem: Acute (5) Failure of outpatient treatment Problem: Acute
[2016-12-18] MEDS: POLYVINYL ALCOHOL 150 DROP BTL OP SCH (17:31)
[2016-12-18] MEDS: SUCRALFATE 1 G TABLET PO SCH ×2 (17:31→20:16)
[2016-12-18] MEDS ORDERED: METHYLPREDNISOLONE SOD SUCC 125 MG in WATER FOR INJ.,BACTERIOSTATIC 0 ML IV SCH (19:00)
[2016-12-18] MEDS ORDERED: METHYLPREDNISOLONE SOD SUCC 30 MG in WATER FOR INJ.,BACTERIOSTATIC 0 ML IV SCH (19:00)
[2016-12-18] MEDS: PANTOPRAZOLE SODIUM 40 MG TABLET.EC PO SCH (20:16)
[2016-12-18] MEDS ORDERED: GABAPENTIN 100 MG CAPSULE PO SCH (21:00)
[2016-12-18] MEDS ORDERED: GABAPENTIN 300 MG CAPSULE PO SCH (21:00)
[2016-12-18] MEDS: HYDROcodone/ACETAMINOPHEN 1 EACH TABLET PO PRN (22:08)
[2016-12-19] MEDS: ALBUTEROL SULFATE/IPRATROPIUM 3 ML NEBU IH SCH ×6 (02:37→22:08)
[2016-12-19] MEDS: METHYLPREDNISOLONE SOD SUCC 30 MG in WATER FOR INJ.,BACTERIOSTATIC 0 ML IV SCH ×3 (06:06→22:15)
[2016-12-19 06:08] LABS: Hematocrit 33.7 % (37.0-47.0); Mean Cell Volume 84.5 fl (78-100); Mean Corpuscular Hemoglobin 27.6 pg (27-31); Mean Corpuscular Hgb Conc 32.6 g/dl (32-36); Mean Platelet Volume 11.6 fl (6.0-9.5); Neutrophil # 12.6 K/mm3 (1.3-6.0); Neutrophil % 87.8 % (42-75.0); Platelet Count 170 K/mm3 (150-450); Red Blood Count 3.99 M/mm3 (4.2-5.4); Red Cell Distribution Width 14.2 % (11.5-14.0); White Blood Count 14.4 K/mm3 (4.0-10.5)
[2016-12-19 06:34] LABS: Anion Gap 16.2 mmol/L (6.8-13.8); BUN/Creatinine Ratio 25.3 (9.0-21.6); Calcium * 8.8 mg/dL (7.9-10.9); Carbon Dioxide 22.5 mmol/L (24-32.6); Estimated Creat Clear 34.2; Potassium 4.7 mmol/L (3.4-4.6); T4 Free * 1.36 ng/dL (0.76-1.46); TSH * 0.076 uIU/mL (0.358-3.74)
[2016-12-19] MEDS: PANTOPRAZOLE SODIUM 40 MG TABLET.EC PO SCH ×2 (06:46→20:10)
[2016-12-19] MEDS: LEVOTHYROXINE SODIUM 150 MCG TABLET PO SCH (06:46)
[2016-12-19] MEDS: POLYVINYL ALCOHOL 150 DROP BTL OP SCH ×3 (09:34→16:23)
[2016-12-19] MEDS: BETA-CAROTENE(A) W-C , E/MIN 1 TAB TABLET PO SCH (09:34)
[2016-12-19] MEDS: CALCIUM CARBONATE/VITAMIN D3 1 TAB TABLET PO SCH (09:35)
[2016-12-19] MEDS: SUCRALFATE 1 G TABLET PO SCH ×4 (09:35→20:09)
[2016-12-19] MEDS: clonazePAM 0.5 MG TABLET PO SCH (09:36)
[2016-12-19] MEDS: ENOXAPARIN SODIUM 40 MG/0.4 ML SYRG SC SCH (09:36)
[2016-12-19] MEDS: HYDROCHLOROTHIAZIDE 12.5 MG CAPSULE PO SCH (09:36)
[2016-12-19] MEDS: LISINOPRIL 20 MG TABLET PO SCH (09:37)
[2016-12-19] MEDS: NON-FORMULARY 1 DOSE DOSE (Letrozole [Femara] 2.5 MG) PO SCH (09:37)
[2016-12-19] MEDS: AZITHROMYCIN 250 MG TABLET PO SCH (14:14)
[2016-12-19] MEDS: HYDROcodone/ACETAMINOPHEN 1 EACH TABLET PO PRN (14:44)
--- NOTE | 2016-12-19 17:32 | PN ---
Subjective - Date and Time Seen Date: 12/19/16 Time: 06:40 Subjective Narrative: Less SOB. Less cough. Stronger. Good appetite. Very little production of white phlegm. Objective - Review of Systems Generalized/Overall Review: Reports: Malaise EENTM: Reports: No Symptoms Reported Respiratory: Reports: Cough, Shortness of Breath Cardiac: Reports: No Symptoms Reported Abdominal: Reports: No Symptoms Reported Genitourinary Symptoms: Reports: No Symptoms Reported Musculoskeletal Complaints: Reports: No Symptoms Reported Neurological: Reports: No Symptoms Reported Skin: Reports: No Symptoms Reported Endocrine: Reports: No Symptoms Reported Misc: All systems neg except as marked - Vitals Vitals: Last Vital Signs Selected Entries 12/19/16 12/19/16 02:00 06:28 Temperature 36.7 C Temperature Temporal Artery Source Scan Pulse Rate 73 71 Respiratory 18 18 Rate Blood Pressure 96/45 Blood Pressure Supine Position O2 Sat by Pulse 95 92 Oximetry Oxygen Delivery Room Air Room Air Method - Abnormal Lab Findings Abnormal Lab Findings: Abnormal Lab Results 12/19/16 12/19/16 Range/Units 05:31 05:31 WBC 14.4 H (4.0-10.5) K/mm3 RBC 3.99 L (4.2-5.4) M/mm3 Hgb 11.0 L (12.5-16.0) gm/dL Hct 33.7 L (37.0-47.0) % RDW 14.2 H (11.5-14.0) % MPV 11.6 H (6.0-9.5) fl Immature Gran % (Auto) 0.70 H (0.001-0.429) % Immature Gran # (Auto) 0.10 H (0.000-0.0310) K/mm3 Neutrophils % 87.8 H (42-75.0) % Lymphocytes % 7.0 L (20-51) % Neutrophils # 12.6 H (1.3-6.0) K/mm3 Lymphocytes # 1.0 L (1.5-3.5) k/mm3 Potassium 4.7 H (3.4-4.6) mmol/L Carbon Dioxide 22.5 L (24-32.6) mmol/L Anion Gap 16.2 H (6.8-13.8) mmol/L BUN 25 H (3-23) mg/dL Est GFR (Non-Af Amer) 58 L (60-130) mL/min BUN/Creatinine Ratio 25.3 H (9.0-21.6) Random Glucose 170 H D (70-110) mg/dL TSH 0.076 L (0.358-3.74) uIU/mL - Exam Constitutional: Present: Alert, Oriented x3, Cooperative, Well developed, Well nourished, No distress ENT Exam: Present: normal ENT inspection, pharynx normal, hard of hearing Neck: Present: normal inspection Respiratory: Present: decreased breath sounds, rhonchi Cardiovascular/Chest: Present: regular rate, rhythm, no murmur Abdomen: Present: Normal bowel sounds, soft, nontender, nondistended, no rebound tenderness, no hepatospenomegaly, no masses Extremity: Present: normal inspection, no pedal edema Skin Exam: Present: normal color, warm/dry, no cyanosis Neurologic: Present: alert, oriented x 3 Appearance: Present: appropriate appearance, appropriate insight, neat, no memory impairment Eye contact: Present: cooperative, good eye contact, normal speech Thoughts: Present: normal thought pattern Assessment/Plan Plan Narrative: Continue antibiotics. Ambulate. Follow labs. - Problems/Diagnosis (1) Pneumonia Problem: Acute Qualifiers: Pneumonia type: due to unspecified organism Laterality: right Lung location: unspecified part of lung Qualified Code(s): J18.9 - Pneumonia, unspecified organism (2) Hypertension Problem: Chronic Qualifiers: Hypertension type: essential hypertension Qualified Code(s): I10 - Essential (primary) hypertension (3) Hypothyroidism Problem: Chronic Qualifiers: Hypothyroidism type: acquired Qualified Code(s): E03.9 - Hypothyroidism, unspecified (4) Bronchospasm with bronchitis, acute Problem: Acute (5) Failure of outpatient treatment Problem: Acute
[2016-12-19] MEDS: SENNOSIDES/DOCUSATE SODIUM 1 TAB TABLET PO SCH (22:14)
[2016-12-20] MEDS: ALBUTEROL SULFATE/IPRATROPIUM 3 ML NEBU IH SCH ×6 (02:08→22:20)
[2016-12-20 06:37] LABS: Hemoglobin 11.9 gm/dL (12.5-16.0); Mean Cell Volume 84.7 fl (78-100); Mean Corpuscular Hemoglobin 27.2 pg (27-31); Mean Corpuscular Hgb Conc 32.2 g/dl (32-36); Neutrophil # 14.1 K/mm3 (1.3-6.0); Neutrophil % 84.4 % (42-75.0); Platelet Count 383 K/mm3 (150-450); Red Blood Count 4.37 M/mm3 (4.2-5.4); Red Cell Distribution Width 14.5 % (11.5-14.0); White Blood Count 16.7 K/mm3 (4.0-10.5)
[2016-12-20] MEDS: METHYLPREDNISOLONE SOD SUCC 30 MG in WATER FOR INJ.,BACTERIOSTATIC 0 ML IV SCH (06:51)
[2016-12-20 06:52] LABS: Anion Gap 15.1 mmol/L (6.8-13.8); BUN/Creatinine Ratio 25.4 (9.0-21.6); Calcium * 8.8 mg/dL (7.9-10.9); Carbon Dioxide 24.5 mmol/L (24-32.6); Estimated Creat Clear 29.7; Potassium 4.6 mmol/L (3.4-4.6)
[2016-12-20] MEDS: PANTOPRAZOLE SODIUM 40 MG TABLET.EC PO SCH ×2 (06:52→20:51)
[2016-12-20] MEDS: LEVOTHYROXINE SODIUM 100 MCG TABLET PO SCH (07:20)
[2016-12-20] MEDS: LEVOTHYROXINE SODIUM 150 MCG TABLET PO SCH (07:21)
[2016-12-20] MEDS: NON-FORMULARY 1 DOSE DOSE (Letrozole [Femara] 2.5 MG) PO SCH (10:09)
[2016-12-20] MEDS: POLYVINYL ALCOHOL 150 DROP BTL OP SCH ×3 (10:13→17:08)
[2016-12-20] MEDS: AZITHROMYCIN 250 MG TABLET PO SCH (10:13)
[2016-12-20] MEDS: BETA-CAROTENE(A) W-C , E/MIN 1 TAB TABLET PO SCH (10:13)
[2016-12-20] MEDS: SUCRALFATE 1 G TABLET PO SCH ×4 (10:14→20:50)
[2016-12-20] MEDS: ENOXAPARIN SODIUM 40 MG/0.4 ML SYRG SC SCH (10:14)
[2016-12-20] MEDS: CALCIUM CARBONATE/VITAMIN D3 1 TAB TABLET PO SCH (10:14)
[2016-12-20] MEDS: clonazePAM 0.5 MG TABLET PO SCH (10:14)
--- NOTE | 2016-12-20 10:40 | PN ---
Subjective - Date and Time Seen Date: 12/20/16 Time: 10:36 Subjective Narrative: Less SOB. Less cough. Stronger. Good appetite. Very little production of white phlegm. chronic left side chest wall pain since mastectomy. intolerant of gabapentin and pregabalin. Objective - Review of Systems Generalized/Overall Review: Reports: Malaise EENTM: Reports: No Symptoms Reported Respiratory: Reports: Cough, Shortness of Breath Cardiac: Reports: No Symptoms Reported Abdominal: Reports: No Symptoms Reported Genitourinary Symptoms: Reports: No Symptoms Reported Musculoskeletal Complaints: Reports: Other - chest wall pain on left Neurological: Reports: No Symptoms Reported Skin: Reports: No Symptoms Reported Endocrine: Reports: No Symptoms Reported Misc: All systems neg except as marked - Vitals Vitals: Last Vital Signs Selected Entries 12/20/16 12/20/16 09:00 10:31 Temperature 36.6 C Temperature Oral Source Pulse Rate 84 91 Respiratory 18 18 Rate Blood Pressure 102/56 O2 Sat by Pulse 95 96 Oximetry Oxygen Delivery Room Air Method - Abnormal Lab Findings Abnormal Lab Findings: Abnormal Lab Results 12/20/16 12/20/16 Range/Units 06:20 06:20 WBC 16.7 H (4.0-10.5) K/mm3 Hgb 11.9 L (12.5-16.0) gm/dL RDW 14.5 H (11.5-14.0) % Immature Gran % (Auto) 1.10 H (0.001-0.429) % Immature Gran # (Auto) 0.18 H (0.000-0.0310) K/mm3 Neutrophils % 84.4 H (42-75.0) % Lymphocytes % 9.0 L (20-51) % Neutrophils # 14.1 H (1.3-6.0) K/mm3 Anion Gap 15.1 H (6.8-13.8) mmol/L BUN 29 H (3-23) mg/dL Est GFR (Non-Af Amer) 49 L (60-130) mL/min BUN/Creatinine Ratio 25.4 H (9.0-21.6) Random Glucose 127 H (70-110) mg/dL - Exam Constitutional: Present: Alert, Oriented x3, Cooperative, Well developed, Well nourished, No distress ENT Exam: Present: normal ENT inspection, hearing grossly normal Neck: Present: normal inspection Respiratory: Present: no respiratory distress, decreased breath sounds Cardiovascular/Chest: Present: no chest tenderness, no murmur Abdomen: Present: Normal bowel sounds, soft, nontender, nondistended, no rebound tenderness, no hepatospenomegaly, no masses Extremity: Present: non-tender, no pedal edema Skin Exam: Present: normal color, warm/dry, no cyanosis Neurologic: Present: alert, oriented x 3 Appearance: Present: appropriate appearance, appropriate insight, neat, no memory impairment Eye contact: Present: cooperative, good eye contact, normal speech Thoughts: Present: normal thought pattern Assessment/Plan Plan Narrative: amitriptyline for chest wall pain. aspercreme for chest wall pain. continue antibiotics. follow labs. - Problems/Diagnosis (1) Pneumonia Problem: Acute Qualifiers: Pneumonia type: due to unspecified organism Laterality: right Lung location: unspecified part of lung Qualified Code(s): J18.9 - Pneumonia, unspecified organism (2) Hypertension Problem: Chronic Qualifiers: Hypertension type: essential hypertension Qualified Code(s): I10 - Essential (primary) hypertension (3) Hypothyroidism Problem: Chronic Qualifiers: Hypothyroidism type: acquired Qualified Code(s): E03.9 - Hypothyroidism, unspecified (4) Bronchospasm with bronchitis, acute Problem: Acute (5) Failure of outpatient treatment Problem: Acute (6) Chest wall pain following surgery Problem: Chronic
[2016-12-20] MEDS: TROLAMINE SALICYLATE 90 APPL TUBE TP SCH ×3 (13:34→20:50)
[2016-12-20] MEDS: AMITRIPTYLINE HCL 10 MG TABLET PO SCH (20:50)
[2016-12-20] MEDS: SENNOSIDES/DOCUSATE SODIUM 1 TAB TABLET PO SCH (20:51)
[2016-12-20] MEDS: HYDROcodone/ACETAMINOPHEN 1 EACH TABLET PO PRN (20:51)
[2016-12-21] MEDS: ALBUTEROL SULFATE/IPRATROPIUM 3 ML NEBU IH SCH ×6 (02:31→22:39)
[2016-12-21 05:30] LABS: Hematocrit 36.3 % (37.0-47.0); Hemoglobin 11.6 gm/dL (12.5-16.0); Mean Cell Volume 85.6 fl (78-100); Mean Corpuscular Hemoglobin 27.4 pg (27-31); Mean Platelet Volume 9.2 fl (6.0-9.5); Neutrophil # 7.5 K/mm3 (1.3-6.0); Neutrophil % 61.1 % (42-75.0); Platelet Count 372 K/mm3 (150-450); Red Blood Count 4.24 M/mm3 (4.2-5.4); Red Cell Distribution Width 14.6 % (11.5-14.0); White Blood Count 12.3 K/mm3 (4.0-10.5)
[2016-12-21 05:44] LABS: Anion Gap 13.7 mmol/L (6.8-13.8); BUN/Creatinine Ratio 32.7 (9.0-21.6); Calcium * 8.6 mg/dL (7.9-10.9); Carbon Dioxide 25.8 mmol/L (24-32.6); Estimated Creat Clear 31.6; Potassium 4.5 mmol/L (3.4-4.6)
[2016-12-21] MEDS: PANTOPRAZOLE SODIUM 40 MG TABLET.EC PO SCH ×2 (06:17→22:13)
[2016-12-21] MEDS: LEVOTHYROXINE SODIUM 100 MCG TABLET PO SCH (06:17)
[2016-12-21] MEDS: TROLAMINE SALICYLATE 90 APPL TUBE TP SCH ×4 (08:23→22:12)
[2016-12-21] MEDS: ENOXAPARIN SODIUM 40 MG/0.4 ML SYRG SC SCH (08:23)
[2016-12-21] MEDS: POLYVINYL ALCOHOL 150 DROP BTL OP SCH ×3 (08:23→17:21)
[2016-12-21] MEDS: WATER FOR INJ BACTERIOSTATIC IV SCH (08:23)
[2016-12-21] MEDS: METHYLPREDNISOLONE SOD SUCC IV SCH (08:23)
--- NOTE | 2016-12-21 08:23 | PN ---
Subjective - Date and Time Seen Date: 12/21/16 Time: 08:19 Subjective Narrative: Less SOB. Less cough. Stronger. Good appetite. Very little production of white phlegm. chronic left side chest wall pain since mastectomy, not any better today. drowsy. Objective - Review of Systems Generalized/Overall Review: Reports: Malaise EENTM: Reports: No Symptoms Reported Respiratory: Reports: Cough, Shortness of Breath Cardiac: Reports: No Symptoms Reported Abdominal: Reports: No Symptoms Reported Genitourinary Symptoms: Reports: No Symptoms Reported Musculoskeletal Complaints: Reports: Other - chronic left thorax pain Neurological: Reports: No Symptoms Reported Skin: Reports: No Symptoms Reported Endocrine: Reports: No Symptoms Reported Misc: All systems neg except as marked - Vitals Vitals: Last Vital Signs Selected Entries 12/21/16 07:59 Temperature 36.6 C Temperature Oral Source Pulse Rate 88 Respiratory 18 Rate Blood Pressure 121/80 Blood Pressure Supine Position O2 Sat by Pulse 99 Oximetry Oxygen Delivery Room Air Method Oxygen Flow 0 Rate - Abnormal Lab Findings Abnormal Lab Findings: Abnormal Lab Results 12/21/16 12/21/16 Range/Units 05:25 05:25 WBC 12.3 H D (4.0-10.5) K/mm3 Hgb 11.6 L (12.5-16.0) gm/dL Hct 36.3 L (37.0-47.0) % RDW 14.6 H (11.5-14.0) % Immature Gran % (Auto) 2.40 H (0.001-0.429) % Immature Gran # (Auto) 0.29 H (0.000-0.0310) K/mm3 Monocytes % 9.3 H (0.0-9) % Neutrophils # 7.5 H (1.3-6.0) K/mm3 Monocytes # 1.1 H (0.0-1.0) k/mm3 BUN 35 H (3-23) mg/dL Est GFR (Non-Af Amer) 53 L (60-130) mL/min BUN/Creatinine Ratio 32.7 H (9.0-21.6) - Exam Constitutional: Present: Alert, Oriented x3, Cooperative, Well developed, Well nourished, No distress ENT Exam: Present: normal ENT inspection, hearing grossly normal Neck: Present: normal inspection Respiratory: Present: lungs clear, no respiratory distress Cardiovascular/Chest: Present: regular rate, rhythm, no murmur, chest tender - left thorax tender Abdomen: Present: Normal bowel sounds, soft, nontender, nondistended, no rebound tenderness, no hepatospenomegaly, no masses Extremity: Present: normal inspection, no pedal edema Skin Exam: Present: normal color, warm/dry, no cyanosis Neurologic: Present: alert, oriented x 3 Appearance: Present: appropriate appearance, appropriate insight, neat, no memory impairment Eye contact: Present: cooperative, good eye contact, normal speech Thoughts: Present: normal thought pattern Assessment/Plan Plan Narrative: Same medications. Follow labs as needed. Home tomorrow. - Problems/Diagnosis (1) Pneumonia Problem: Acute Qualifiers: Pneumonia type: due to unspecified organism Laterality: right Lung location: unspecified part of lung Qualified Code(s): J18.9 - Pneumonia, unspecified organism (2) Hypertension Problem: Chronic Qualifiers: Hypertension type: essential hypertension Qualified Code(s): I10 - Essential (primary) hypertension (3) Hypothyroidism Problem: Chronic Qualifiers: Hypothyroidism type: acquired Qualified Code(s): E03.9 - Hypothyroidism, unspecified (4) Bronchospasm with bronchitis, acute Problem: Acute (5) Failure of outpatient treatment Problem: Acute (6) Chest wall pain following surgery Problem: Chronic
[2016-12-21] MEDS: clonazePAM 0.5 MG TABLET PO SCH (08:24)
[2016-12-21] MEDS: AMITRIPTYLINE HCL 10 MG TABLET PO SCH ×2 (08:24→22:13)
[2016-12-21] MEDS: SUCRALFATE 1 G TABLET PO SCH ×4 (08:24→22:12)
[2016-12-21] MEDS: AZITHROMYCIN 250 MG TABLET PO SCH (08:24)
[2016-12-21] MEDS: NON-FORMULARY 1 DOSE DOSE (Letrozole [Femara] 2.5 MG) PO SCH (08:24)
[2016-12-21] MEDS: CALCIUM CARBONATE/VITAMIN D3 1 TAB TABLET PO SCH (08:24)
[2016-12-21] MEDS: BETA-CAROTENE(A) W-C , E/MIN 1 TAB TABLET PO SCH (08:24)
[2016-12-21] MEDS: HYDROcodone/ACETAMINOPHEN 1 EACH TABLET PO PRN ×2 (17:26→22:13)
[2016-12-21] MEDS: SENNOSIDES/DOCUSATE SODIUM 1 TAB TABLET PO SCH (22:13)
[2016-12-22] MEDS: ALBUTEROL SULFATE/IPRATROPIUM 3 ML NEBU IH SCH ×5 (02:28→18:17)
[2016-12-22] MEDS: LEVOTHYROXINE SODIUM 100 MCG TABLET PO SCH (06:47)
[2016-12-22] MEDS: PANTOPRAZOLE SODIUM 40 MG TABLET.EC PO SCH (06:47)
[2016-12-22] MEDS: HYDROcodone/ACETAMINOPHEN 1 EACH TABLET PO PRN (06:48)
[2016-12-22] MEDS ORDERED: HYDROcodone/ACETAMINOPHEN 1 EACH TABLET PO PRN (07:33)
[2016-12-22] MEDS: HYDROcodone/ACETAMINOPHEN 1 EACH TABLET PO SCH ×2 (09:03→14:49)
[2016-12-22] MEDS: WATER FOR INJ BACTERIOSTATIC IV SCH (09:56)
[2016-12-22] MEDS: SUCRALFATE 1 G TABLET PO SCH ×3 (09:56→16:59)
[2016-12-22] MEDS: AMITRIPTYLINE HCL 10 MG TABLET PO SCH (09:56)
[2016-12-22] MEDS: clonazePAM 0.5 MG TABLET PO SCH (09:56)
[2016-12-22] MEDS: BETA-CAROTENE(A) W-C , E/MIN 1 TAB TABLET PO SCH (09:56)
[2016-12-22] MEDS: CALCIUM CARBONATE/VITAMIN D3 1 TAB TABLET PO SCH (09:56)
[2016-12-22] MEDS: TROLAMINE SALICYLATE 90 APPL TUBE TP SCH ×3 (09:56→16:59)
[2016-12-22] MEDS: NON-FORMULARY 1 DOSE DOSE (Letrozole [Femara] 2.5 MG) PO SCH (09:56)
[2016-12-22] MEDS: METHYLPREDNISOLONE SOD SUCC IV SCH (09:56)
[2016-12-22] MEDS: ENOXAPARIN SODIUM 40 MG/0.4 ML SYRG SC SCH (09:57)
[2016-12-22] MEDS: POLYVINYL ALCOHOL 150 DROP BTL OP SCH ×3 (09:57→16:59)
[2016-12-22] MEDS: LISINOPRIL 20 MG TABLET PO SCH (09:58)
[2016-12-22] MEDS: HYDROCHLOROTHIAZIDE 12.5 MG CAPSULE PO SCH (09:58)
[2016-12-22] MEDS: AZITHROMYCIN 250 MG TABLET PO SCH (09:59)
[2016-12-22 15:06] VITALS: BP 110/50
--- NOTE | 2016-12-22 16:24 | DS ---
(1) Pneumonia Problem: Acute Qualifiers: Pneumonia type: due to unspecified organism Laterality: right Lung location: unspecified part of lung Qualified Code(s): J18.9 - Pneumonia, unspecified organism (2) Hypertension Problem: Chronic Qualifiers: Hypertension type: essential hypertension Qualified Code(s): I10 - Essential (primary) hypertension (3) Hypothyroidism Problem: Chronic Qualifiers: Hypothyroidism type: acquired Qualified Code(s): E03.9 - Hypothyroidism, unspecified (4) Bronchospasm with bronchitis, acute Problem: Acute (5) Failure of outpatient treatment Problem: Acute (6) Chest wall pain following surgery Problem: Chronic Description of Stay: Slow steady improvement in the hospital. Chronic left sided chest wall pain was an issue while here. This morning she said she was more sob, had more of a cough, and had more pain. Amitriptyline and topical aspercreme did not help her chest wall pain. We increased her [place] dose this morning, and this afternoon she reports her pain is manageable. Vitals are stable, this morning, her lungs were clear, she is ambulating well, and her O2 sats are normal. Procedures Performed: none Discharge Disposition: Home self care Disposition: Home self-care Condition: Good Discharge Activity: Activity as tolerated Discharge Diet: General/regular food Referrals: Tatiana Casey, [facility] [Primary Care Provider] - Problem Oriented Discharge Instructions to Patient/Family: Community-Acquired Pneumonia, Adult, [id number], Chronic Pain Additional Patient Instructions (free text): Followup with Tatiana Casey in 1 week. CXR in 2 weeks. Prescriptions (Any new or edited meds): Albuterol Sulfate/Ipratropium [Duoneb 2.5-0.5MG/3ML Soln] 3 ml IH QID #1 nebu HYDROcodone/ACETAMINOPHEN [Wakeman 5-325] 2 each PO QID PRN #60 tablet PRN Reason: pain Complete Home Medications List: Complete Home Medication List: Lisinopril/Hydrochlorothiazide [Lisinopril-Hctz 20-12.5 mg Tab] 1 each PO DAILY 04/26/13 Beta-Carotene(A) W-C , E/Min [Ocuvite] 2 tab PO DAILY 12/18/16 Calcium Carb/Vit D3/Minerals [Calcium 600+D Plus Minerals Tb] 1 each PO DAILY Letrozole [Femara] 2.5 mg PO DAILY 12/18/16 Omeprazole 40 mg PO BID 12/18/16 Polyvinyl Alcohol [Artificial Tears] 1 drop OP TID 12/18/16 Sucralfate [Carafate] 1 gm PO QID 12/18/16 clonazePAM [Klonopin] 0.5 mg PO DAILY 12/18/16 Albuterol Sulfate/Ipratropium [Duoneb 2.5-0.5MG/3ML Soln] 3 ml IH QID #1 nebu HYDROcodone/ACETAMINOPHEN [[place]eman 5-325] 2 each PO QID PRN #60 tablet 12/22/16 Levothyroxine Sodium [Synthroid] 100 mcg PO DAILY@0700 #1 tablet 12/22/16
== END 2016-12-22 19:00 | disposition home or self-care (01) | DRG 195 ==
LOC: ER 10:36 → MS 13:53
PROVIDERS: ADMIT Allergy & Immunology; ATTEND Allergy & Immunology
PROC: 4A033R1 Measurement of Arterial Saturation, Peripheral, Percutaneous Approach (ICD-10-PCS; principal; 2016-12-18)
DX: J18.9 Pneumonia, unspecified organism (principal); J20.9 Acute bronchitis, unspecified; R07.89 Other chest pain; I10 Essential (primary) hypertension; E03.9 Hypothyroidism, unspecified; Z87.891 Personal history of nicotine dependence

== ENCOUNTER 2016-12-23 12:26 | Emergency (ER) | payer MEDICARE, BC ==
--- OUTSIDE RECORDS SUMMARY | 2016-12-23 13:10 | XMS REPORT | Continuity of Care Document ---
:1940 Author Organization [facility] ([facility]) Address [address] [place] [address] Phone [phone] Care Team Providers Name Role Phone RobertAleta santosgy Primary Care Provider [phone] Source Comments This disclosure is being made pursuant to the Care Everywhere program, applicable federal and state laws, and may not contain all informaitonavailable regarding this patient.[facility] ([facility]) Active Allergies and Adverse Reactions Allergen Noted [...] Status Procedure Cmts 11/13/2009 20/100 20/50 Avastin #[id number] 12/25/2009 20/35 20/35 -1 332 Avastin #[id number] 02/05/2010 20/35 20/35 307 Avastin #[id number] 03/26/2010 20/50 20/30 294 Avastin #[id number] 05/21/2010 20/28 20/22 285 Avastin #[id number] 07/23/2010 20/30 20/20 -1 316 Avastin #[id number] 09/17/2010 20/30 20/25 285 Avastin #[id number] 10/31/2010 20/30-1 20/20-1 259 Avastin #[id number] 12/10/2010 20/40-1 20/20-1 328 Avastin #[id number] 01/23/2011 20/30 +2 20/20 -2 281 Avastin#[id number] 02/27/2011 20/40 20/20 281 Avastin # [id number] 04/16/2011 20/30 20/20 -2 278 Avastin #[id number] 05/29/2011 20/30 20/20-1 Avastin #[id number] 07/22/2011 20/40 20/20 Avastin [id number] 09/30/2011 20/60 20/20-2 Avastin [id number] 11/25/2011 20/50-2 ph 20/30-1 20/20-2 Avastin [id number] 01/20/2012 20/60 ph 20/40 20/20 Avastin [id number] 03/23/2012 320 avastin [id number] 05/25/2012 20/60 ph20/25 20/40 Avastin [id number] 07/28/2012 20/25 -2 20/20 -1 Avastin [id number] 10/06/2012 20/25+2 20/30+2 Avastin [id number] 12/22/201228-1 20/28 Avastin [id number] 03/09/2013/30+2 2020-2 Lucentis [id number] 05/31/2013 [id number] 06/29/2013 sc -1 sc Luc[facility]is [id number] 07/27/13 Md 28+2 Luc[facility]is [id number] 08/26/2013-2 in 20/ cc [facility]is [id number] 09/28/2013+1 in -2 sc [facility]entis [id number] 11/02/2013 sc 20/22 sc Lucentis [id number] 01/17/2014 -2 in 2030 -2 sc Lucentis [id number] 03/22/2014 20/20 sc 20/20 sc Lucentis [id number] 05/24/2014 20/20-1 sc 20/20-1 sc Lucentis lot [id number] 08/02/2014 20/20 sc 20/20 sc Lucentis lot [id number] 09/19/2014 20/30 sc 20/30 sc Lucentis [id number] 11/01/2014 20/20 sc 20/20 sc Lucentis lot [id number] 12/06/2014 20/20 sc 20/20 sc Lucentis [id number] 01/24/2015 20/20 sc 20/20 sc Lucentis [id number] 03/14/2015 20/25 sc 20/25 sc Lucentis [id number] . 05/22/2015 20/40 sc 20/25 sc Lucentis [id number] 07/25/2015 20/20 -1 sc 20/20 -2 sc [facility]is [id number] 09/05/2015 20/20 sc 20/20 sc [facility]entis [id number] 10/31/2015 20/20-2 sc 20/20-1 sc [facility]entis [id number] 12/26/2015 20/20 sc 20/15-1 sc [facility]entis [id number] 02/20/2016 20/20 -1 cc 20/15 -2 cc Lucentis [id number] 04/09/2016 20/20-1 sc 20/25 sc Lucentis [id number] 05/28/2016 20/15-1 sc 20/20-2 sc [facility]entis [id number] 07/16/2016 20/20-1 +1 sc 20/20-2 +3 sc [facility]entis [id number] 09/10/2016 20/20 -2 sc 20/20-1 +3 sc [facility]is [id number] 10/27/2016 20/20 sc 20/20 -1 sc [facility] [id number] 12/17/2016 20/20 sc 20/20 sc [facility] [id number] Most Recent Encounters Date Type Specialty Providers [...] Reported Reason For [address] [place] [address] [phone] (Fax) Health Maintenance Due Date Last Done [...] 05/22/201520/0/25-2 20/03/14/201520/25NI 20/25 01/24/201520/20 20/20 12/06/201420/20 20/20 11/01/328260/20 20/20 09/19/201420/0/30+2 20/08/02/201420/20 20/20 05/24/201420/20-1 20/20-1 03/22/201420/20 [...] dry then SLOWLY increase interval. Back to [facility] or prn. Staff Involved Resident/Fellow without Staff [...] MD Vitreoretinal Surgery Fellow Department of Ophthalmology [facility] OCT MACULA LEFT EYE (12/17/2016 8:20 AM) Narrative OS:CMT 353 microns , was 314. Juxtafoveal FVPED with increased SRF adjacent to lesion. OCT MACULA (10/27/2016 8:07 AM) Narrative OD:CMT 266 microns , was 272. Drusen no fluid. OS:CMT 314 microns , was 353. Juxtafoveal FVPED with trace SRF adjacent to lesion.
[2016-12-23] MEDS ORDERED: ALBUTEROL SULFATE 2.5 MG/3 ML VIAL.NEB IH ONE (13:11)
[2016-12-23] MEDS ORDERED: METHYLPREDNISOLONE SOD SUCC/PF 40 MG/ML VIAL IV ONE (13:12)
[2016-12-23 13:21] LABS: Hematocrit 39.1 % (37.0-47.0); Hemoglobin 12.4 gm/dL (12.5-16.0); Mean Cell Volume 86.5 fl (78-100); Mean Corpuscular Hemoglobin 27.4 pg (27-31); Mean Corpuscular Hgb Conc 31.7 g/dl (32-36); Mean Platelet Volume 8.5 fl (6.0-9.5); Platelet Count 387 K/mm3 (150-450); Red Blood Count 4.52 M/mm3 (4.2-5.4); Red Cell Distribution Width 14.5 % (11.5-14.0); White Blood Count 15.4 K/mm3 (4.0-10.5)
--- NOTE | 2016-12-23 13:23 | ERNOTE ---
Medical Problem HPI - Narrative Date of Service: 12/23/16 - General Chief Complaint: General Assessment Time Seen by Provider: 12/23/16 12:56 Source: patient Exam Limitations: no limitations - Immun/Allergies/Home Medications Immunizations: IMMUNIZATION HX Immunizations Up to Date Yes History of Influenza Vaccine Yes Hx Pneumococcal Vaccination Yes Allergies/Adverse Reactions: Allergies codeine [Codeine] Allergy (Severe, Verified 12/23/16 12:52) respiratory distress ropinirole Allergy (Mild, Verified 12/23/16 12:52) Nausea amitriptyline Adverse Reaction (Intermediate, Verified 12/23/16 12:52) Didn't help her chronic chest wall pain gabapentin Adverse Reaction (Intermediate, Verified 12/23/16 12:52) STEWARD/STEWARDESS LOUNGE side effects pregabalin Adverse Reaction (Intermediate, Verified 12/23/16 12:52) STEWARD/STEWARDESS LOUNGE side effects Home Medications: HOME MEDICATIONS Lisinopril/Hydrochlorothiazide [Lisinopril-Hctz 20-12.5 mg Tab] 1 each PO DAILY 04/26/13 [Last Taken 04/17/14] Beta-Carotene(A) W-C , E/Min [Ocuvite] 2 tab PO DAILY 12/18/16 [Last Taken Unknown] Calcium Carb/Vit D3/Minerals [Calcium 600+D Plus Minerals Tb] 1 each PO DAILY [Last Taken Unknown] Letrozole [Femara] 2.5 mg PO DAILY 12/18/16 [Last Taken Unknown] Omeprazole 40 mg PO BID 12/18/16 [Last Taken Unknown] Polyvinyl Alcohol [Artificial Tears] 1 drop OP TID 12/18/16 [Last Taken Unknown] Sucralfate [Carafate] 1 gm PO QID 12/18/16 [Last Taken Unknown] clonazePAM [Klonopin] 0.5 mg PO DAILY 12/18/16 [Last Taken Unknown] Albuterol Sulfate/Ipratropium [Duoneb 2.5-0.5MG/3ML Soln] 3 ml IH QID #1 nebu [Last Taken Unknown] HYDROcodone/ACETAMINOPHEN [[place] 5-325] 2 each PO QID PRN #60 tablet 12/22/16 [ Last Taken Unknown] Levothyroxine Sodium [Synthroid] 100 mcg PO DAILY@0700 #1 tablet 12/22/16 [Last Taken Unknown] Doxycycline Monohydrate 100 mg PO BID #20 tablet 12/23/16 [Last Taken Unknown] predniSONE [Prednisone] 3 tab PO DAILY #9 tab 12/23/16 [Last Taken Unknown] - History of Present History Narrative: Pt. comes in with c/o increased SOB, weakness, and post chest pain. Pt. states that it started a week ago but she was inpatient in the hospital until yesterday when she was discharged. Pt. states that she has been taking medications as prescribed and she is worsening since discharge. pt. denies any alleviating or aggravating fctors at this time. Review of Systems - Review of Systems Constitutional: Present: recent illness, chills, weakness, fatigue, malaise. Absent: fever EYE: Present: no symptoms reported ENT: Present: no symptoms reported Respiratory: Present: shortness of breath, cough, wheezing Cardiology: Absent: chest pain, palpitations, edema Gastrointestinal/Abdominal: Present: no symptoms reported. Absent: nausea, vomiting, diarrhea, constipation, abdominal pain Musculoskeletal: Present: back pain - L post back pain Skin: Present: no symptoms reported Neurological: Present: no symptoms reported. Absent: headache, dizziness/light- headedness, numbness, tingling All Other Systems: All systems neg except as marked - Patient's Past Medical History Patient History - Medical: Hypothyroidism Patient History - Cardiac/Respiratory: Hypertension Patient History - Cancer: Breast, Kidney Patient History - Surgical Procedures: Appendectomy, Cholecystectomy, Total Knee Replacement, T & A, Other Patient History - Other: None LMP (females 10-50): Menopausal - Family History Brother Family History - Medical: , Diabetes Type 2 Sister Family History - Medical: Diabetes Type 2 Family History - Cardiac/Respiratory: COPD Mother Family History - Medical: Diabetes Type 1 Father Family History - Cardiac/Respiratory: History Unknown - Social History Living Situations: home Abuse History: No History of abuse Psych History: No pertinent hx Smoking Status: Former smoker Alcohol Use: none Drug Use: none - Immunizations Immunizations Up to Date: Yes Hx Pneumococcal Vaccination: Yes History of Influenza Vaccine: Yes Physical Exam - Physical Exam General Appearance: Present: wd/wn, alert, no apparent distress Eye Exam: Normal inspection: bilateral, PERRL: bilateral, EOMI: bilateral Ears, Nose, Throat: Present: normal ENT inspection, normal pharynx Neck: Present: normal inspection, nontender. Absent: lymphadenopathy (R), lymphadenopathy (L) Respiratory: Present: no respiratory distress, no accessory muscle use, chest nontender, decreased breath sounds, wheezing - LML, other - tight L lung Cardiovascular/Chest: Present: no murmur, normal peripheral pulses, tachycardia Gastrointestinal/Abdominal: Present: normal bowel sounds, nontender, nondistended, soft, no organomegaly Back Exam: Present: normal inspection, normal range of motion, no CVA tenderness , no vertebral tenderness Extremity Exam: Present: normal inspection, non-tender, normal range of motion, no edema Neurological Exam: Present: alert, oriented, normal mood/affect, no motor/ sensory deficits Skin Exam: Present: warm/dry, pallor ED Progress - Date and Time Seen: Date and Time: 12/23/16 15:19 Discussed with Case management and hospitalist and pt. does not qualify for admission at this time. Discussed with pt. and family. Will send pt. home with abx and steroids and pt. will follow up with PCP tomorrow. - Results and Orders Patient's Lab Results:: I have reviewed the patient's lab results. - Vital Signs Patient's Vital Signs:: I have reviewed the patient's vital signs. Vital Signs: Vital Signs 12/23/16 12:46 Temperature 36.4 C L Pulse Rate 113 H Respiratory 16 Rate Blood Pressure 116/69 O2 Sat by Pulse 94 Oximetry - X-Ray X-Ray #1 X-Ray: chest Interpretation: Reviewed by me X-ray Comments: Improving RML pneumonia - Progress/Reassessment Chief Complaint: General Assessment Departure - Departure Clinical Impression: Pneumonia Qualifiers: Pneumonia type: due to unspecified organism Laterality: right Lung location: middle lobe of lung Qualified Code(s): J18.1 - Lobar pneumonia, unspecified organism Disposition: Home self-care Condition: Good Instructions: Pneumonia, Child Additional Instructions: Please follow up with primary provider tomorrow as planned. Please return to ED if you get worse. Referrals: Tatiana Casey, [facility] [Primary Care Provider] - Prescriptions: Doxycycline Monohydrate 100 mg PO BID #20 tablet predniSONE [Prednisone] 3 tab PO DAILY #9 tab
[2016-12-23 13:30] LABS: Total Cells Counted 100
[2016-12-23] MEDS ORDERED: ALBUTEROL SULFATE 2.5 MG/0.5 ML VIAL.NEB IH ONE (13:32)
[2016-12-23] MEDS ORDERED: METHYLPREDNISOLONE SOD SUCC/PF 40 MG/ML VIAL ONE (13:32)
[2016-12-23 13:39] LABS: Albumin * 2.8 gm/dl (3.4-5.0); Anion Gap 12.8 mmol/L (6.8-13.8); Bilirubin, Total 0.1 mg/dL (0.0-1.1); Ca. Corrected For Albumin 9.6 mg/dL (8.4-10.2); Carbon Dioxide 29.5 mmol/L (24-32.6); Potassium 4.3 mmol/L (3.4-4.6); Total Protein 6.3 gm/dL (6.2-8.2)
[2016-12-23 13:44] LABS: Band 8 % (0-2.0); Basophil 1 % (0-1); Eosinophil 2 % (0-3); Immature Granulocyte 4 (0-1); Lymphocyte 28 % (20-51); Monocyte 4 % (0-9); Neutrophil 53 % (42-75); Neutrophil # 8.2 K/mm3 (1.3-6.0); Platelet Estimate Normal (NORMAL); RBC Morphology Normal (NORMAL)
[2016-12-23] MEDS ORDERED: KETOROLAC TROMETHAMINE 60 MG/2 ML VIAL IM ONE (13:47)
[2016-12-23] MEDS ORDERED: KETOROLAC TROMETHAMINE 30 MG/ML VIAL IV ONE (14:05)
[2016-12-23] MEDS ORDERED: KETOROLAC TROMETHAMINE 30 MG/ML VIAL ONE (14:07)
[2016-12-23 15:02] LABS: Urine Bilirubin Negative (NEGATIVE); Urine Blood Negative /ul (NEGATIVE); Urine Ketone Negative (NEGATIVE); Urine Nitrite Negative (NEGATIVE); Urine Protein Negative (NEGATIVE); Urine Specific Gravity 1.015 SP.GR. (1.005-1.010); Urine Urobilinogen Normal (NORMAL)
[2016-12-23 15:10] LABS: Urine Appearance Clear; Urine Bacteria TRACE; Urine Color Pale Yellow; Urine RBC None Seen /hpf (0-5); Urine WBC None Seen /hpf (0-5)
[2016-12-23 17:50] VITALS: BP 110/60
== END 2016-12-23 15:29 | disposition home or self-care (01) ==
LOC: ER 12:26
DX: J18.1 Lobar pneumonia, unspecified organism (principal); I10 Essential (primary) hypertension; E03.9 Hypothyroidism, unspecified; Z85.3 Personal history of malignant neoplasm of breast; Z85.528 Personal history of other malignant neoplasm of kidney

== ENCOUNTER 2018-12-01 15:43 | Observation (INO) ==
[2018-12-01] MEDS ORDERED: MORPHINE SULFATE 2 MG/ML DISP.SYRIN IV ONE ×2 (16:16→17:51)
--- NOTE | 2018-12-01 16:17 | ERNOTE ---
Dyspnea - General Presenting Symptoms: shortness of breath Time Seen by Provider: 12/01/18 15:51 Source: patient Exam Limitations: no limitations - Immun/Allergies/Home Medications Immunizations: IMMUNIZATION HX Immunizations Up to Date Yes History of Influenza Vaccine Yes Hx Pneumococcal Vaccination Yes Allergies/Adverse Reactions: Allergies codeine [Codeine] Allergy (Intermediate, Verified 12/01/18 15:56) NAUSEA, KOSHER SEALER, SOB ibuprofen [From Motrin] Adverse Reaction (Mild, Verified 12/01/18 15:56) Nausea lansoprazole [From Prevacid] Adverse Reaction (Mild, Verified 12/01/18 15:56) DIZZINESS NEOPRENE Adverse Reaction (Mild, Uncoded 12/01/18 15:56) WRIST BRACE CAUSED RASH Home Medications: HOME MEDICATIONS Beta-Carotene(A) W-C , E/Min [Ocuvite] 2 tab PO DAILY 12/18/16 [Last Taken Unknown] Acetaminophen [Tylenol] 325 mg PO Q4H PRN 09/27/17 [Last Taken Unknown] Levothyroxine Sodium [Synthroid] 100 mcg PO DAILY 02/05/18 [Last Taken Unknown] Lisinopril/Hydrochlorothiazide [Lisinopril-Hctz 10-12.5 mg Tab] 1 each PO DAILY 02/05/18 [Last Taken 02/10/18 08:00] Calcium Carbonate/Vitamin D3 [Calcium 500+D Tablet Chew] 1 each PO DAILY 02/10/18 [Last Taken Unknown] Omeprazole 40 mg PO BID 02/10/18 [Last Taken Unknown] Benzonatate [Tessalon Perle] 100 mg PO TID PRN 11/21/18 [Last Taken Unknown] Guaifenesin/Hydrocodone [Hydrocodone-Guaif 2.5-200 mg/5] 5 ml PO BID PRN 11/21/18 [Last Taken Unknown] - History of Present Illness Narrative: Patient has a history renal and breast cancer. 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 She has chronic back pain. Two weeks ago she was seen in the ER and diagnosed with strep, finished her antibiotics a few days ago She was started on cough medications by her PCP which contains hydrocodone so she stopped the vicodin that she was taking for pain. She last took her cough medications last night, no pain meds today. She states that her chronic pain has been worse the last couple of days and she is here for shortness of breath that started today, somewhat unclear whether she is short of breath or it just hurts to breathe Associated Symptoms-Dyspnea: Denies: fever/chills, sweating Review of Systems - Review of Systems Constitutional: Absent: fever, malaise ENT: Absent: nose congestion, sore throat Respiratory: Present: See HPI Cardiology: Present: See HPI Gastrointestinal/Abdominal: Absent: nausea, abdominal pain Genitourinary: Present: no symptoms reported Musculoskeletal: Present: back pain Skin: Absent: rash Medical History (Last Reviewed 12/01/18 @ 19:52 by Louisa Dudley MD) Breast cancer COPD (chronic obstructive pulmonary disease) Cancer of bone Cancer of kidney Metastatic renal cell carcinoma Surgical History: Surgical History (Last Reviewed 12/01/18 @ 19:52 by Louisa Dudley MD) History of mastectomy Left Side History of nephrectomy Left Side Family History: Family History (Last Reviewed 12/01/18 @ 15:58 by Stefani Mahoney RN) Brother Lung cancer Social History: Preferred Language Paraguayan Do you have any voodoo or No cultural preference? Smoking Status Former smoker Abuse History No History of abuse Psych History Hx of Depression Alcohol Use none Drug Use none No Social History Section defined Physical Exam - Physical Exam General Appearance: Present: wd/wn, alert, mild distress Ears, Nose, Throat: Present: normal pharynx Neck: Present: normal inspection, nontender Respiratory: Present: no respiratory distress, lungs clear, chest tenderness - left lower ribs anteriorly, decreased breath sounds Cardiovascular/Chest: Present: regular rate, rhythm, no murmur Gastrointestinal/Abdominal: Present: normal bowel sounds, nontender, nondistended, soft Back Exam: Present: normal inspection, vertebral tenderness - mid thoracic Extremity Exam: Present: no edema Neurological Exam: Present: alert, oriented, normal mood/affect, no motor/sensory deficits Skin Exam: Present: normal color, warm/dry Progress - Results and Orders Patient's Lab Results:: I have reviewed the patient's lab results. - Vital Signs Patient's Vital Signs:: I have reviewed the patient's vital signs. Vital Signs: Vital Signs 12/01/18 15:52 12/01/18 15:56 12/01/18 16:09 Temperature 35.9 C L 35.9 C L 35.9 C L Pulse Rate 78 84 78 Respiratory Rate 18 18 18 Blood Pressure 160/86 H 159/82 H 154/83 H O2 Sat by Pulse Oximetry 98 95 93 - EKG EKG #1 EKG: NSR, other - no acute changes EKG read: Interp. by me - X-Ray X-Ray #1 X-Ray: chest - no acute changes Interpretation: Interp. by me - Progress/Reassessment Chief Complaint: Dyspnea Progress Note-Subjective: 12/01/18 17:52 only little pain relieve with morphine 2mg 12/01/18 19:00 only little pain relieve after second dose of morphine discussed that I don't feel safe giving her more IV pain medication and sending her home due to increased fall risk 12/01/18 19:30 discussed with gustavo Black to admit for observation for pain management Departure Clinical Impression: Metastatic renal cell carcinoma to bone, Chest wall pain - Departure Disposition: Still a patient Condition: Stable
[2018-12-01 16:26] LABS: Hematocrit 37.3 % (37.0-47.0); Hemoglobin 11.7 gm/dL (12.5-16.0); Mean Cell Volume 98.9 fl (78-100); Mean Corpuscular Hgb Conc 31.4 g/dl (32-36); Mean Platelet Volume 8.8 fl (8-12.5); Neutrophil # 7.6 K/mm3 (1.3-6.0); Neutrophil % 78.6 % (42-75.0); Platelet Count 269 K/mm3 (150-450); Red Blood Count 3.77 M/mm3 (4.2-5.4); White Blood Count 9.7 K/mm3 (4.0-10.5)
[2018-12-01 16:51] LABS: ALT 23 U/L (19-67); AST 22 U/L (0-48); Albumin * 3.2 gm/dl (3.4-5.0); Alkaline Phosphatase * 60 U/L (50-170); Anion Gap 14.1 mmol/L (6.8-13.8); BNP * 378 pg/mL (5-550); BUN/Creatinine Ratio 21.3 (9.0-21.6); Bilirubin, Total 0.2 mg/dL (0.0-1.1); Blood Urea Nitrogen 19 mg/dL (3-23); Ca. Corrected For Albumin 9.3 mg/dL (8.4-10.2); Carbon Dioxide 26.8 mmol/L (24-32.6); Chloride 103 mmol/L (97-106); Glucose * 111 mg/dL (70-110); Potassium 4.9 mmol/L (3.4-4.6); Sodium 139 mmol/L (132-142); Total Protein 6.5 gm/dL (6.2-8.2); Troponin I Less than 0.017 ng/mL (0.00-0.10)
[2018-12-01] MEDS ORDERED: HYDROmorphone HCL 1 MG/ML DISP.SYRIN IV ONE (19:40)
[2018-12-01] MEDS ORDERED: ACETAMINOPHEN 500 MG TABLET PO PRN (19:48)
[2018-12-01] MEDS ORDERED: HYDROmorphone HCL 1 MG/ML DISP.SYRIN IV PRN ×2 (19:48→21:01)
[2018-12-01] MEDS ORDERED: ONDANSETRON HCL/PF 2 MG/ML VIAL IV PRN (19:48)
--- NOTE | 2018-12-01 20:43 | HP ---
Chief Complaint - Chief Complaint Date of Service: 12/01/18 Time of Service: 20:43 Chief Complaint: dyspnea History of Present Illness: Patient with past medical history of metastatic renal cell cancer with left nephrectomy, stage II left breast cancer with mastectomy, severe chronic pain from vertebral compression fracture, and polymyalgia rheumatica on prednisone and methotrexate. She is getting monthly X-Murillo infusions for cancer treatment. She presented to the ER for increased chest wall pain and dyspnea. She reports having a cough, and was recently treated with amoxicillin for strep throat. She had been taking Vicodin for pain control, but this was stopped when she started cough medicine. She reports having trouble breathing due to her pain. She did receive 2 mg of morphine in the ER, and some Dilaudid with minimal improvement in her pain. Denies fevers, abdominal pain, vomiting, dysuria. Medical History (Last Updated 12/01/18 @ 20:52 by Sharon Mitchell RN) Hypertension Breast cancer COPD (chronic obstructive pulmonary disease) Cancer of bone Cancer of kidney Metastatic renal cell carcinoma Surgical History: Surgical History (Last Reviewed 12/01/18 @ 19:52 by Louisa Dudley MD) History of mastectomy Left Side History of nephrectomy Left Side Family History: Family History (Last Reviewed 12/01/18 @ 15:58 by Stefani Mahoney RN) Brother Lung cancer Social History: Preferred Language Tajik Do you have any catholic or No cultural preference? Smoking Status Former smoker Abuse History No History of abuse Psych History Hx of Depression Alcohol Use none Drug Use none No Social History Section defined Review Of Systems (GEN) - Review of Systems Generalized/Overall Review: Absent: Fever EENTM: Absent: Throat Pain Respiratory: Present: Cough, Shortness of Breath Cardiac: Present: Chest Pain. Absent: Edema Abdominal: Absent: Vomiting, Diarrhea Genitourinary: Absent: Burning Neurological: Absent: Anxiety Immunizations: IMMUNIZATION HX Immunizations Up to Date Yes History of Influenza Vaccine Yes Hx Pneumococcal Vaccination Yes Allergies/Adverse Reactions: Allergies Allergy/AdvReac Type Severity Reaction Status Date / Time codeine [Codeine] Allergy Intermediate NAUSEA, Verified 12/01/18 15:56 MILK PASTEURIZER, SOB ibuprofen [From Motrin] AdvReac Mild Nausea Verified 12/01/18 15:56 lansoprazole [From Prevacid] AdvReac Mild DIZZINESS Verified 12/01/18 15:56 NEOPRENE AdvReac Mild WRIST Uncoded 12/01/18 15:56 BRACE CAUSED RASH Home Medications: HOME MEDICATIONS Beta-Carotene(A) W-C , E/Min [Ocuvite] 2 tab PO DAILY 12/18/16 [Last Taken Unknown] Acetaminophen [Tylenol] 650 mg PO BID 09/27/17 [Last Taken 12/01/18] Levothyroxine Sodium [Synthroid] 100 mcg PO DAILY 02/05/18 [Last Taken Unknown] Lisinopril/Hydrochlorothiazide [Lisinopril-Hctz 10-12.5 mg Tab] 0.5 each PO DAILY 02/05/18 [Last Taken 02/10/18 08:00] Calcium Carbonate/Vitamin D3 [Calcium 500+D Tablet Chew] 1 each PO DAILY 02/10/18 [Last Taken Unknown] Omeprazole 40 mg PO BID 02/10/18 [Last Taken Unknown] Benzonatate [Tessalon Perle] 100 mg PO BID PRN 11/21/18 [Last Taken Unknown] Guaifenesin/Hydrocodone [Hydrocodone-Guaif 2.5-200 mg/5] 5 ml PO BID PRN 11/21/18 [Last Taken Unknown] predniSONE [Prednisone] 5 mg PO DAILY 12/01/18 [Last Taken 12/01/18] Exam - Exam Vital Signs: Vital Signs - Last Taken Temp 36.1 C 12/01/18 20:02 Pulse 78 12/01/18 20:02 Resp 18 12/01/18 20:02 BP 144/69 12/01/18 20:02 Pulse Ox 94 12/01/18 20:02 Constitutional: Present: Alert, Oriented x3, Cooperative, No distress, Elderly Neck: Absent: lymphadenopathy (R), lymphadenopathy (L) Respiratory: Present: normal breath sounds Cardiovascular/Chest: Present: regular rate, rhythm, chest tender - Left chest wall. Absent: edema Abdomen: Present: soft, nontender Extremity: Absent: lower extremity edema Neurologic: Present: normal mood/affect Diagnostic Studies: Abnormal Lab Results 12/01/18 12/01/18 Range/Units 16:20 16:20 RBC 3.77 L (4.2-5.4) M/mm3 Hgb 11.7 L (12.5-16.0) gm/dL MCHC 31.4 L (32-36) g/dl RDW 15.0 H (11.5-14.0) % Immature Gran % (Auto) 0.60 H (0.001-0.429) % Immature Gran # (Auto) 0.06 H (0.000-0.0310) K/mm3 Neutrophils % 78.6 H (42-75.0) % Lymphocytes % 12.5 L (20-51) % Neutrophils # 7.6 H (1.3-6.0) K/mm3 Lymphocytes # 1.21 L (1.5-3.5) k/mm3 Potassium 4.9 H D (3.4-4.6) mmol/L Anion Gap 14.1 H (6.8-13.8) mmol/L Random Glucose 111 H (70-110) mg/dL Albumin 3.2 L (3.4-5.0) gm/dl Laboratory Results WBC 9.7 K/mm3 (4.0-10.5) 12/01/18 16:20 RBC 3.77 M/mm3 (4.2-5.4) L 12/01/18 16:20 Hgb 11.7 gm/dL (12.5-16.0) L 12/01/18 16:20 Hct 37.3 % (37.0-47.0) 12/01/18 16:20 MCV 98.9 fl (78-100) 12/01/18 16:20 MCH 31.0 pg (27-31) 12/01/18 16:20 MCHC 31.4 g/dl (32-36) L 12/01/18 16:20 RDW 15.0 % (11.5-14.0) H 12/01/18 16:20 Plt Count 269 K/mm3 (150-450) 12/01/18 16:20 MPV 8.8 fl (8-12.5) 12/01/18 16:20 Immature Gran % (Auto) 0.60 % (0.001-0.429) H 12/01/18 16:20 Immature Gran # (Auto) 0.06 K/mm3 (0.000-0.0310) H 12/01/18 16:20 Neutrophils % 78.6 % (42-75.0) H 12/01/18 16:20 Lymphocytes % 12.5 % (20-51) L 12/01/18 16:20 Monocytes % 6.2 % (0.0-9) 12/01/18 16:20 Eosinophils % 1.6 % (0.0-3.0) 12/01/18 16:20 Basophils % 0.5 % (0.0-1.0) 12/01/18 16:20 Nucleated RBC % 0.0 k/mm3 (0-1) 12/01/18 16:20 Neutrophils # 7.6 K/mm3 (1.3-6.0) H 12/01/18 16:20 Lymphocytes # 1.21 k/mm3 (1.5-3.5) L 12/01/18 16:20 Monocytes # 0.6 k/mm3 (0.0-1.0) 12/01/18 16:20 Eosinophils # 0.2 k/mm3 (0.0-0.7) 12/01/18 16:20 Absolute Basophils 0.1 k/mm3 (0.0-0.1) 12/01/18 16:20 Sodium 139 mmol/L (132-142) 12/01/18 16:20 Plasma Sodium 139 mmol/L (130-142) 12/01/18 16:20 Potassium 4.9 mmol/L (3.4-4.6) H D 12/01/18 16:20 Chloride 103 mmol/L (97-106) 12/01/18 16:20 Carbon Dioxide 26.8 mmol/L (24-32.6) 12/01/18 16:20 Anion Gap 14.1 mmol/L (6.8-13.8) H 12/01/18 16:20 BUN 19 mg/dL (3-23) 12/01/18 16:20 Creatinine 0.89 mg/dL (0.4-1.4) 12/01/18 16:20 Est GFR (Non-Af Amer) 65 mL/min (60-130) D 12/01/18 16:20 BUN/Creatinine Ratio 21.3 (9.0-21.6) 12/01/18 16:20 Random Glucose 111 mg/dL (70-110) H 12/01/18 16:20 Calcium 9.0 mg/dL (7.9-10.9) 12/01/18 16:20 Calcium Adj for Albumin 9.3 mg/dL (8.4-10.2) 12/01/18 16:20 Total Bilirubin 0.2 mg/dL (0.0-1.1) 12/01/18 16:20 AST 22 U/L (0-48) 12/01/18 16:20 ALT 23 U/L (19-67) 12/01/18 16:20 Alkaline Phosphatase 60 U/L (50-170) 12/01/18 16:20 Troponin I Less than 0.017 ng/mL (0.00-0.10) 12/01/18 16:20 B-Natriuretic Peptide 378 pg/mL (5-550) 12/01/18 16:20 Total Protein 6.5 gm/dL (6.2-8.2) 12/01/18 16:20 Albumin 3.2 gm/dl (3.4-5.0) L 12/01/18 16:20 Assessment/Plan - Assessment/Plan (1) Intractable pain Assessment: Acute on chronic. She has baseline chronic back pain secondary to her compression fracture, but she has new left chest wall pain that is worsening, likely related to her metastasis. We will continue Dilaudid overnight, and attempt to reduce to p.o. medications tomorrow. Problem: Acute (2) Metastatic renal cell carcinoma to bone Assessment: Right-sided port in place. She is to receive her next X Murillo treatment on December 08 per the note done November 29. Problem: Acute (3) Polymyalgia rheumatica Assessment: We will continue home prednisone and methotrexate when these medications are entered Problem: Chronic (4) Hypertension Assessment: Currently controlled. Will continue home meds when they are entered Problem: Chronic Qualifiers: Hypertension type: essential hypertension Qualified Code(s): I10 - Essential (primary) hypertension (5) Hypothyroidism Assessment: Continue home levothyroxine Problem: Chronic Qualifiers: Hypothyroidism type: acquired Qualified Code(s): E03.9 - Hypothyroidism, unspecified (6) Cough Assessment: May be residual from her recent upper respiratory illness. She is afebrile, and no obvious pneumonia on chest x-ray. She does not have an elevated white count, and she does not have a rhonchi or crackles on physical exam. Problem: Acute
[2018-12-01] MEDS ORDERED: BENZONATATE 100 MG CAPSULE PO PRN (21:50)
[2018-12-01] MEDS: HYDROcodone/ACETAMINOPHEN 1 EACH TABLET PO PRN (23:47)
[2018-12-02] MEDS: HYDROcodone/ACETAMINOPHEN 1 EACH TABLET PO PRN ×2 (03:41→07:26)
[2018-12-02] MEDS ORDERED: PANTOPRAZOLE SODIUM 40 MG TABLET.EC PO SCH (07:00)
[2018-12-02] MEDS ORDERED: LEVOTHYROXINE SODIUM 100 MCG TABLET PO SCH (07:00)
[2018-12-02] MEDS ORDERED: predniSONE 5 MG TABLET PO SCH (09:00)
[2018-12-02] MEDS ORDERED: HYDROCHLOROTHIAZIDE 25 MG TABLET PO SCH (09:00)
[2018-12-02] MEDS ORDERED: LISINOPRIL 5 MG TABLET PO SCH (09:00)
[2018-12-02] MEDS ORDERED: ACETAMINOPHEN 325 MG TABLET PO SCH (09:00)
--- NOTE | 2018-12-02 09:17 | PN ---
Subjective - Date and Time Seen Date: 12/02/18 Time: 09:16 Subjective Narrative: Patient reports continued left-sided chest pain with movement. She has been able to ambulate to the bathroom. She tolerated a breakfast of toast and coffee. No new concerns. Her last dose of IV pain medication was 12 hours prior. Objective - Review of Systems Generalized/Overall Review: Denies: Fever Respiratory: Denies: Cough Cardiac: Reports: Chest Pain - chest wall Abdominal: Denies: Vomiting, Abdominal Pain Genitourinary Symptoms: Reports: No Symptoms Reported Musculoskeletal Complaints: Reports: Back Pain - Vitals Vitals: Last Vital Signs Temp 36.6 C 12/02/18 06:30 Pulse 83 12/02/18 09:05 Resp 16 12/02/18 06:30 BP 111/54 12/02/18 09:05 Pulse Ox 90 L 12/02/18 09:10 - Abnormal Lab Findings Abnormal Lab Findings: Abnormal Lab Results 12/01/18 12/01/18 Range/Units 16:20 16:20 RBC 3.77 L (4.2-5.4) M/mm3 Hgb 11.7 L (12.5-16.0) gm/dL MCHC 31.4 L (32-36) g/dl RDW 15.0 H (11.5-14.0) % Immature Gran % (Auto) 0.60 H (0.001-0.429) % Immature Gran # (Auto) 0.06 H (0.000-0.0310) K/mm3 Neutrophils % 78.6 H (42-75.0) % Lymphocytes % 12.5 L (20-51) % Neutrophils # 7.6 H (1.3-6.0) K/mm3 Lymphocytes # 1.21 L (1.5-3.5) k/mm3 Potassium 4.9 H D (3.4-4.6) mmol/L Anion Gap 14.1 H (6.8-13.8) mmol/L Random Glucose 111 H (70-110) mg/dL Albumin 3.2 L (3.4-5.0) gm/dl - Exam Constitutional: Present: Alert, Oriented x3, Elderly Respiratory: Present: lungs clear, no respiratory distress, other - left chest wall pain Cardiovascular/Chest: Present: regular rate, rhythm Abdomen: Present: soft, nontender Assessment/Plan - Problems/Diagnosis (1) Intractable pain Problem: Acute Narrative: She has not used IV Dilaudid since last night. Will discontinue, and start 10 mg Oxycodone. her pain is secondary to her vertebral compression fracture sustained almost a year ago, and her bone metastasis. Will need to come up with a pain medication regimen for her to go home on. May add long-acting OxyContin if needed, however this could be done at outpatient visit. Her blood pressure is not elevated, heart rate not elevated, respiratory rate not elevated, so she does not have objective signs of severe pain. Can likely DC later today. (2) Metastatic renal cell carcinoma to bone Problem: Chronic Narrative: Right-sided port in place. She is to receive her next X Murillo treatment on December 08 per the note done November 29. S/P left nephrectomy. Patient also has a history of breast cancer, S/P mastectomy. (3) Polymyalgia rheumatica Problem: Chronic Narrative: Per her oncology note, she takes prednisone and methotrexate per rheumatology. (4) Hypertension Problem: Chronic Qualifiers: Hypertension type: essential hypertension Qualified Code(s): I10 - Essential (primary) hypertension Narrative: Well-controlled. (5) Hypothyroidism Problem: Chronic Qualifiers: Hypothyroidism type: acquired Qualified Code(s): E03.9 - Hypothyroidism, unspecified Narrative: Continue home levothyroxine (6) Cough Problem: Chronic Narrative: She was recently treated for strep, her cough is likely secondary to the upper respiratory infection. No active signs of infection today.
[2018-12-02] MEDS: oxyCODONE HCL 5 MG TABLET PO PRN ×2 (10:01→14:15)
[2018-12-02] MEDS ORDERED: BISACODYL 10 MG SUPP.RECT RC PRN (11:10)
[2018-12-02] MEDS ORDERED: SENNOSIDES/DOCUSATE SODIUM 1 TAB TABLET PO PRN (11:10)
--- NOTE | 2018-12-02 14:26 | DS ---
(1) Intractable pain Problem: Chronic (2) Metastatic renal cell carcinoma to bone Problem: Chronic (3) Polymyalgia rheumatica Problem: Chronic (4) Hypertension Problem: Chronic Qualifiers: Hypertension type: essential hypertension Qualified Code(s): I10 - Essential (primary) hypertension (5) Hypothyroidism Problem: Chronic Qualifiers: Hypothyroidism type: acquired Qualified Code(s): E03.9 - Hypothyroidism, unspecified (6) Cough Problem: Chronic Description of Stay: Patient with past medical history of metastatic renal cell cancer with left nephrectomy, stage II left breast cancer with mastectomy, severe chronic pain from vertebral compression fracture, and polymyalgia rheumatica on prednisone and methotrexate. She is getting monthly X-Murillo infusions for cancer treatment. She presented to the ER for increased chest wall pain and dyspnea. She reports having a cough, and was recently treated with amoxicillin for strep throat. She had been taking Vicodin for pain control, but this was stopped when she started cough medicine. She reports having trouble breathing due to her pain. She did receive 2 mg of morphine in the ER, and some Dilaudid with minimal improvement in her pain. Denies fevers, abdominal pain, vomiting, dysuria. She received a dose of dilaudid at 21:00 on the evening of admission, and did not receive further IV pain medication. She was transitioned to 10 mg po oxycontin bid with 10 mg po oxocodone q6h prn for breakthrough pain, and will continue this until she sees her PCP. It was felt her pain was due to her longstanding pain from her compression fracture and her metastatic bone cancer. Her medication doses may still need to be adjusted over the upcoming weeks. She was able to maintain po hydration and ambulate to the bathroom. Procedures Performed: none Results and Findings: Lab Pending Results 12/01/18 16:20: WBC 9.7, RBC 3.77 L, Hgb 11.7 L, Hct 37.3, MCV 98.9, MCH 31.0, MCHC 31.4 L, RDW 15.0 H, Plt Count 269, MPV 8.8, Immature Gran % (Auto) 0.60 H, Immature Gran # (Auto) 0.06 H, Neutrophils % 78.6 H, Lymphocytes % 12.5 L, Monocytes % 6.2, Eosinophils % 1.6, Basophils % 0.5, Nucleated RBC % 0.0, Neutrophils # 7.6 H, Lymphocytes # 1.21 L, Monocytes # 0.6, Eosinophils # 0.2, Absolute Basophils 0.1 12/01/18 16:20: Sodium 139, Plasma Sodium 139, Potassium 4.9 H D, Chloride 103, Carbon Dioxide 26.8, Anion Gap 14.1 H, BUN 19, Creatinine 0.89, Est GFR (Non-Af Amer) 65 D, BUN/Creatinine Ratio 21.3, Random Glucose 111 H, Calcium 9.0, Calcium Adj for Albumin 9.3, Total Bilirubin 0.2, AST 22, ALT 23, Alkaline Phosphatase 60, Troponin I Less than 0.017, B-Natriuretic Peptide 378, Total Protein 6.5, Albumin 3.2 L Discharge Location: Home Disposition: Home self-care Condition: Fair Discharge Activity: Activity as tolerated Discharge Diet: General/regular food Referrals: Tatiana Casey, [facility] [Primary Care Provider] - Additional Patient Instructions (free text): -Please make TCM appointment unless mcc discharge. Thank you! Norma @ [phone]. Prescriptions (Any new or edited meds): Bisacodyl [Dulcolax Suppository] 10 mg RC DAILY PRN #30 supp.rect PRN Reason: Constipation oxyCODONE HCL [Oxycodone] 10 mg PO Q6H PRN #36 tab PRN Reason: Severe Pain (Pain Score 7-10) oxyCODONE HCL [Oxycontin] 10 mg PO BID #18 tab.sr.12h Sennosides/Docusate Sodium [Senokot-S] 1 tab PO BID PRN #60 tablet PRN Reason: Constipation Complete Home Medications List: Complete Home Medication List: Beta-Carotene(A) W-C , E/Min [Ocuvite] 1 tab PO BID 12/18/16 Levothyroxine Sodium [Synthroid] 100 mcg PO DAILY 02/05/18 Lisinopril/Hydrochlorothiazide [Lisinopril-Hctz 10-12.5 mg Tab] 0.5 each PO DAILY 02/05/18 Calcium Carbonate/Vitamin D3 [Calcium 500+D Tablet Chew] 1 each PO DAILY 02/10/18 Omeprazole 40 mg PO BID 02/10/18 Benzonatate [Tessalon Perle] 100 mg PO BID PRN 11/21/18 Guaifenesin/Hydrocodone [Hydrocodone-Guaif 2.5-200 mg/5] 5 ml PO BID PRN 11/21/18 Acetaminophen [Pain Reliever] 1,000 mg PO BID 12/01/18 Cholecalciferol (Vitamin D3) [Vitamin D3] 50,000 unit PO Q7D 12/01/18 Cyclobenzaprine HCl 10 mg PO HS PRN 12/01/18 Docusate Sodium [Colace] 100 mg PO BID 12/01/18 Doxepin HCl [Sinequan] 10 mg PO HS 12/01/18 Folic Acid 1 mg PO DAILY 12/01/18 Letrozole [Femara] 2.5 mg PO DAILY 12/01/18 Lidocaine [Lidoderm 5%] 1 patch TOPICAL DAILY 12/01/18 Methotrexate Sodium [Methotrexate] 2.5 mg PO Q7D 12/01/18 Montelukast Sodium [Singulair] 10 mg PO DAILY 12/01/18 Polyethylene Glycol 3350 [Miralax] 17 gm PO DAILY 12/01/18 Polyvinyl Alcohol/Povidone/Pf [Refresh Classic Eye Drops] 1 ea OPHTHALMIC (EYE) DAILY PRN 12/01/18 predniSONE [Prednisone] 5 mg PO DAILY 12/01/18 Acetaminophen [Tylenol] 650 mg PO Q6H PRN tablet 12/02/18 Bisacodyl [Dulcolax Suppository] 10 mg RC DAILY PRN #30 supp.rect 12/02/18 Hydrochlorothiazide [Hydrodiuril] 6.25 mg PO DAILY tablet 12/02/18 Ondansetron HCl/Pf [Zofran] 4 mg IV Q4H PRN vial 12/02/18 Sennosides/Docusate Sodium [Senokot-S] 1 tab PO BID PRN #60 tablet 12/02/18 oxyCODONE HCL [Oxycodone] 10 mg PO Q6H PRN #36 tab 12/02/18 oxyCODONE HCL [Oxycontin] 10 mg PO BID #18 tab.sr.12h 12/02/18
[2018-12-02 15:01] VITALS: BP 131/65
== END 2018-12-02 15:39 | disposition home or self-care (01) ==
LOC: ER 15:43 → MS 15:43
PROVIDERS: ADMIT Family Medicine; ATTEND Family Medicine
CPT/HCPCS: 36415; 71020; 71046; 80053; 83519; 83880; 84484; 85025; 93005; 94760; 96374; 96375; 99285; G0378; J2405